=== PATIENT | male | born 1930 | race Caucasian/White ===

== ENCOUNTER 2017-08-20 10:32 | Inpatient (IN) | payer OTHER, BC ==
[2017-08-20] VITALS (10 sets, daily range): BP systolic 87–113; BP diastolic 51–67; PULSE 78–81; TEMP 36.5; O2SAT 93–99; Ht 188 cm; Wt 112.2 kg
[~2017-08-20] VITALS: Ht 188 cm; Wt 112.2 kg
--- NOTE | 2017-08-20 11:02 | EMERGENCY ROOM VISIT NOTE ---
History Report prepared by Jonh: Shmuel Call Under the Supervision of: Dr. Иван Garcia M.D. First contact with patient: 10:46 Chief Complaint: RESPIRATORY DISTRESS Stated Complaint: RESPIRATORY History of Present Illness The patient is an 87 year old male with a history of COPD who presents to the Emergency Room via EMS with complaints of worsening respiratory distress that started several days ago. Per the nursing staff, the patient wears 2 liters of oxygen normally, but has had to increase it over the past few days. He was 88% on room air on arrival here, and the nurses had to get him on 4 liters of oxygen to increase his oxygen saturation. The patient is noted to febrile here at 38.9, and is tachycardic. His last Tylenol was 4 hours ago. The patient states that he has been out with friends at [employer] all week, and they have been staying in a cabin. He did bring his oxygen there, but his oxygen shut off for about 30 minutes around 5 hours ago. The patient notes that his breathing difficulties started before his oxygen ran out, and adds that he has been a bit weaker than usual the past few days. Per the patient's friend, the patient was sweating and shaking this morning, and would not eat breakfast. The patient notes that he had the chills this morning. Per the patient's friend, the patient ate well until this morning. The patient states that he has no history of smoking. He notes that hie legs have been red for the past couple years. The patient has a pacemaker for a history of atrial fibrillation. He is due for a new battery next month. Source of History: patient, friend Onset: Several days ago Position: other (global) Symptom Intensity: 88% on room air here Quality: other (respiratory distress) Timing: worsening Associated Symptoms: + fevers, + chills, + diaphoresis, + SOB, + weakness Note: Associated symptoms: Shaking this morning. Lack of appetite this morning. Review of Systems See HPI for pertinent positives and negatives. A total of ten systems were reviewed and were otherwise negative. Past Medical & Surgical Medical Problems: (1) Afib (2) COPD (chronic obstructive pulmonary disease) (3) Fever (4) Pacemaker (5) Problems involving respiratory care Family History Family history omitted secondary to patient's advanced age. Social History Smoking Status: Never Smoker Drug Use: none Housing Status: lives with family Occupation Status: retired Current/Historical Medications Scheduled Digoxin (Digoxin), 0.125 MG PO DAILY Dutasteride-Tamsulosin HCl (Dutasteride/Tamsulosin Hc 0.5-0.4 mg), 1 CAP PO DAILY Escitalopram (Lexapro), 10 MG PO DAILY Furosemide (Lasix), 80 MG PO BID Omeprazole (Prilosec), Unknown Dose PO DAILY Rivaroxaban (Xarelto), 20 MG PO DAILY Scheduled PRN Furosemide (Lasix), 40 MG PO UD PRN for FLUID RETENTION Allergies Coded Allergies: No Known Allergies (Unverified , 08/20/17) Physical Exam Vital Signs Date Time Temp Pulse Resp B/P (MAP) Pulse Ox O2 Delivery O2 Flow Rate FiO2 08/20/17 14:00 85 29 115/74 95 Nasal Cannula 4.0 08/20/17 13:37 94 Nasal Cannula 3.0 08/20/17 13:30 95 26 107/73 95 Nasal Cannula 4.0 08/20/17 13:12 83 21 110/58 94 Nasal Cannula 3.0 08/20/17 13:11 84 08/20/17 12:19 94 24 115/60 95 Nasal Cannula 4.0 08/20/17 11:46 93 23 106/61 Nasal Cannula 4.0 08/20/17 11:00 94 Nasal Cannula 4.0 08/20/17 11:00 94 Nasal Cannula 4.0 08/20/17 10:48 94 Nasal Cannula 4.0 08/20/17 10:47 38.9 99 24 114/56 85 Room Air 08/20/17 10:47 Room Air 08/20/17 10:44 113 Physical Exam GENERAL: Awake, alert, dyspneic, fatigued, ill-appearing, in no distress HENT: Normocephalic, atraumatic. Dry cracked mucous membranes. EYES: Normal conjunctiva. Sclera non-icteric. NECK: Supple. No nuchal rigidity. FROM. No JVD. RESPIRATORY: Diminished breath sounds throughout. CARDIAC: Regular rate, normal rhythm. Extremities warm and well perfused. Pulses equal. ABDOMEN: Soft, non-distended. No tenderness to palpation. No rebound or guarding. No masses. RECTAL: Deferred. MUSCULOSKELETAL: Chest examination reveals no tenderness. The back is symmetrical on inspection without obvious abnormality. There is no CVA tenderness to palpation. No joint edema. LOWER EXTREMITIES: 2+ lower extremity edema on the right. 3+ lower extremity edema on the left with erythema, warmth and tenderness. Distal PMS intact. No discoloration. NEURO: Normal sensorium. No sensory or motor deficits noted. SKIN: No rash or jaundice noted. Medical Decision & Procedures ER Provider Diagnostic Interpretation: Radiology results as stated below per my review and radiologist interpretation: CHEST ONE VIEW PORTABLE CLINICAL HISTORY: Atypical chest pain COMPARISON STUDY: No previous studies for comparison. FINDINGS: The heart is enlarged. There is a left subclavian dual-chamber central venous pacemaker. There is right hilar enlargement, likely secondary to a prominent pulmonary artery. This may indicate pulmonary arterial hypertension. There is mild elevation of the interstitium. An element of mild pulmonary vascular congestion must be considered. There is no lobar consolidation[ IMPRESSION: 1. Cardiomegaly and possible pulmonary arterial hypertension 2. Elevation of the interstitium. An element of mild pulmonary vascular congestion must be considered Electronically signed by: Unruly Duron M.D. 08/20/2017 11:24 AM Dictated Date/Time: 08/20/2017 11:23 AM ULTRASOUND L VENOUS DOPP LOWER EXT UNILAT CLINICAL HISTORY: Left leg redness and swelling COMPARISON STUDY: No previous studies for comparison. FINDINGS: Real-time and color flow Doppler imaging were performed. Flow was seen within the femoral, popliteal and calf veins with no intraluminal thrombus demonstrated. The saphenous vein is patent. Fatty replaced left inguinal lymph nodes are visualized. IMPRESSION: No evidence of left lower extremity DVT. Electronically signed by: Unruly Duron M.D 08/20/2017 12:57 PM Dictated Date/Time: 08/20/2017 12:57 PM Laboratory Results 08/20/17 11:20 Red Blood Count 4.07, Mean Corpuscular Volume 91.2, Mean Corpuscular Hemoglobin 29.7, Mean Corpuscular Hemoglobin Concent 32.6, Mean Platelet Volume 9.2, Neutrophils (%) (Auto) 87.1, Lymphocytes (%) (Auto) 7.8, Monocytes (%) (Auto) 4.5, Eosinophils (%) (Auto) 0.1, Basophils (%) (Auto) 0.1, Neutrophils # (Auto) 12.00, Lymphocytes # (Auto) 1.07, Monocytes # (Auto) 0.62, Eosinophils # (Auto) 0.01, Basophils # (Auto) 0.01 08/20/17 11:20 Test 08/20/17 11:20 08/20/17 11:30 White Blood Count 13.76 K/uL (4.8-10.8) Red Blood Count 4.07 M/uL (4.7-6.1) Hemoglobin 12.1 g/dL (14.0-18.0) Hematocrit 37.1 % (42-52) Mean Corpuscular Volume 91.2 fL (80-100) Mean Corpuscular Hemoglobin 29.7 pg (25-34) Mean Corpuscular Hemoglobin Concent 32.6 g/dl (32-36) Platelet Count 242 K/uL (130-400) Mean Platelet Volume 9.2 fL (7.4-10.4) Neutrophils (%) (Auto) 87.1 % Lymphocytes (%) (Auto) 7.8 % Monocytes (%) (Auto) 4.5 % Eosinophils (%) (Auto) 0.1 % Basophils (%) (Auto) 0.1 % Neutrophils # (Auto) 12.00 K/uL (1.4-6.5) Lymphocytes # (Auto) 1.07 K/uL (1.2-3.4) Monocytes # (Auto) 0.62 K/uL (0.11-0.59) Eosinophils # (Auto) 0.01 K/uL (0-0.5) Basophils # (Auto) 0.01 K/uL (0-0.2) RDW Standard Deviation 44.7 fL (36.4-46.3) RDW Coefficient of Variation 13.6 % (11.5-14.5) Immature Granulocyte % (Auto) 0.4 % Immature Granulocyte # (Auto) 0.05 K/uL (0.00-0.02) Prothrombin Time 12.7 SECONDS (9.0-12.0) Prothromb Time International Ratio 1.2 (0.9-1.1) Venous Blood pH 7.44 (7.36-7.41) Venous Blood Partial Pressure CO2 48 mmHg (38.0-50.0) Venous Blood Partial Pressure O2 35 mmHg Venous Blood HCO3 32 mmol/L Venous Blood Oxygen Saturation 65.9 % Venous Blood Base Excess 6.6 mEq/L Anion Gap 8.0 mmol/L (3-11) Est Creatinine Clear Calc Drug Dose 72.8 ml/min Estimated GFR () 78.6 Estimated GFR (Non- 67.8 BUN/Creatinine Ratio 12.9 (10-20) Lactic Acid Level 1.5 mmol/L (0.4-2.0) Calcium Level 9.1 mg/dl (8.5-10.1) Magnesium Level 1.5 mg/dl (1.8-2.4) Total Bilirubin 1.0 mg/dl (0.2-1) Direct Bilirubin 0.3 mg/dl (0-0.2) Aspartate Amino Transf (AST/SGOT) 13 U/L (15-37) Alanine Aminotransferase (ALT/SGPT) 13 U/L (12-78) Alkaline Phosphatase 64 U/L (45-117) Troponin I 0.031 ng/ml (0-0.045) Pro-B-Type Natriuretic Peptide 2011 pg/ml (0-1800) Total Protein 7.1 gm/dl (6.4-8.2) Albumin 3.1 gm/dl (3.4-5.0) Lipase 60 U/L (73-393) Urine Color DK YELLOW Urine Appearance CLEAR (CLEAR) Urine pH 6.0 (4.5-7.5) Urine Specific [place] 1.020 (1.000-1.030) Urine Protein NEG (NEG) Urine Glucose (UA) NEG (NEG) Urine Ketones NEG (NEG) Urine Occult Blood NEG (NEG) Urine Nitrite NEG (NEG) Urine Bilirubin NEG (NEG) Urine Urobilinogen NEG (NEG) Urine Leukocyte Esterase MODERATE (NEG) Urine WBC (Auto) 5-10 /hpf (0-5) Urine RBC (Auto) 0-4 /hpf (0-4) Urine Hyaline Casts (Auto) 1-5 /lpf (0-5) Urine Epithelial Cells (Auto) >30 /lpf (0-5) Urine Bacteria (Auto) NEG (NEG) Laboratory results reviewed by me Medications Administered Medications (Trade) Dose Ordered Sig/Hernandez Route Start Time Stop Time Status Last Admin Dose Admin Vancomycin HCl 2000 mg/Sodium Chloride 540 ml @ 200 mls/hr ONE STAT IV 08/20/17 11:03 08/20/17 13:44 DC 08/20/17 11:37 200 MLS/HR Piperacillin Sod/ Tazobactam Sod (Zosyn Iv) 4.5 gm NOW STAT IV 08/20/17 11:03 08/20/17 11:05 DC 08/20/17 11:21 4.5 GM Methylprednisolone Sodium Succinate (Solu-Medrol IV) 125 mg NOW STAT IV 08/20/17 11:03 08/20/17 11:05 DC 08/20/17 11:21 125 MG Albuterol/ Ipratropium (Duoneb) 3 ml NOW STAT INH 08/20/17 11:03 08/20/17 11:05 DC 08/20/17 11:21 3 ML Furosemide (Lasix Inj) 40 mg NOW STAT IV 08/20/17 12:36 08/20/17 12:37 DC 08/20/17 13:07 40 MG ECG Per My Interpretation Indication: SOB/dyspnea Rate (beats per minute): 100 Rhythm: other (v-paced rhythm) Findings: PVC (single), no acute ischemic change ED Course 1048: The patient was evaluated in room B9. A complete history and physical exam was performed. 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 As the patient mentioned he is due to get it replaced. Given how active it is it should be replaced as soon as possible. If the trigger for replacement was July 27, generally there is a 3-month window to have it done if it is not being actively paced. The battery is functioning. 1303: Upon reexamination, the patient was resting. I discussed the test results and treatment plan with him. The patient will be evaluated for further management. 1314: I discussed the patient with Dr. Linwood Cole rn cardiovascular - he will evaluate the patient for further treatment. Medical Decision I reviewed the patient's past medical history, medications, and the nursing notes as described above. Differential diagnosis: Etiologies such as infections, reactive airway disease, pneumonia, pneumothorax , COPD, CHF, cardiac ischemia, pulmonary embolism, musculoskeletal, gastrointestinal, DVT, musculoskeletal, infection, joint effusion, trauma, lymphedema, idiopathic, as well as others were entertained. The patient is an 87-year-old gentleman with a past medical history of COPD on 2 L home O2 who presents emergency department with worsening shortness of breath , generalized weakness over the past couple of days worsened this morning when his generator turned off and was up without oxygen for 30 minutes per hpi. On arrival the patient is dyspneic appearing uncomfortable but no acute distress tachycardic in the 100s with blood pressure stable, O2 saturation low 90s on 4L NC. On exam the patient has diminished breath sounds throughout. Left lower extremity is 3+ edema with erythema and warmth with distal PMS intact. Duplex negative. WBC 13.7, troponin 0 0.31, BNP 2000, lactate within normal limits. Chest x-ray with cardiomegaly and venous congestion as well as comment on prominent pulmonary artery suspicious for pulmonary hypertension. Given patient 's 3/4 Sirs criteria on arrival the patient was treated with broad-spectrum antibiotics empirically with concern for possible cellulitis source. Given findings of overload with elevated BNP and vascular congestion was given IV dose of Lasix as well. Case was discussed with Douglas Graff hospitalist will evaluate the patient for admission. Medication Reconcilliation Current Medication List: was personally reviewed by me Blood Pressure Screening Patient's blood pressure: Normal blood pressure Consults Time Called: 1150 Consulting Physician: 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 As the patient mentioned he is due to get it replaced. Given how active it is it should be replaced as soon as possible. If the trigger for replacement was July 27, generally there is a 3-month window to have it done if it is not being actively paced. The battery is functioning. Additional Consults: Time Called: 1310 Consulted Physician: Dr. Linwood Cole rn cardiovascular Returned Call: [phone] Additional Comments: I discussed the patient with Dr. Linwood Cole rn cardiovascular - he will evaluate the patient for further treatment. Impression Primary Impression: Sepsis Additional Impressions: Cellulitis CHF (congestive heart failure) Critical Care I have personally spent greater than 35 minutes of critical care time in the direct management of this patient. This includes bedside care, interpretation of diagnostic studies, and testing, discussion with consultants, patient, and family members, and other required patient management activities. This 35 minutes is in excess of all separately billable procedures. Scribe Attestation The scribe's documentation has been prepared under my direction and personally reviewed by me in its entirety. I confirm that the note above accurately reflects all work, treatment, procedures, and medical decision making performed by me. Departure Information Dispostion Being Evaluated By Hospitalist Patient Instructions Asthma - [facility], COPD - [facility], Croup - [facility], [facility] Problem Qualifiers
[2017-08-20] MEDS ORDERED: VANCOMYCIN IV 2,000 MG in SODIUM CHLORIDE 0.9% 500ML 500 ML IV STA (11:03)
[2017-08-20] MEDS ORDERED: PIPERACILLIN/TAZOBACTAM 4.5 GM/100ML D5W IV STA (11:03)
[2017-08-20] MEDS ORDERED: ALBUT/IPRATROP 3MG/0.5MG NEB 3 ML VIAL INH STA (11:03)
[2017-08-20] MEDS ORDERED: METHYLPREDNISOLONE 125 MG VIAL IV STA (11:03)
[2017-08-20] MEDS ORDERED: VANCOMYCIN CONSULT ACTIVE PRN ×2 (11:15→17:30)
--- NOTE | 2017-08-20 11:26 | DIAGNOSTIC IMAGING REPORT ---
CHEST ONE VIEW PORTABLE CLINICAL HISTORY: Atypical chest pain COMPARISON STUDY: No previous studies for comparison. FINDINGS: The heart is enlarged. There is a left subclavian dual-chamber central venous pacemaker. There is right hilar enlargement, likely secondary to a prominent pulmonary artery. This may indicate pulmonary arterial hypertension. There is mild elevation of the interstitium. An element of mild pulmonary vascular congestion must be considered. There is no lobar consolidation[ IMPRESSION: 1. Cardiomegaly and possible pulmonary arterial hypertension 2. Elevation of the interstitium. An element of mild pulmonary vascular congestion must be considered Electronically signed by: Unruly Duron M.D. 08/20/2017 11:24 AM Dictated Date/Time: 08/20/2017 11:23 AM
[2017-08-20] MEDS ORDERED: ESCI10TA17 PO (11:31)
[2017-08-20] MEDS ORDERED: DUTA1CAP25 PO (11:31)
[2017-08-20] MEDS ORDERED: RIVA1TAB4 PO (11:31)
[2017-08-20] MEDS ORDERED: PRLSR20 PO (11:31)
[2017-08-20] MEDS ORDERED: FURO80TA63 PO (11:31)
[2017-08-20] MEDS ORDERED: LNX125 PO (11:31)
[2017-08-20] MEDS ORDERED: FRS/40 PO (11:31)
[2017-08-20 11:32] LABS: BASO % 0.1 %; BASO ABS # 0.01 K/uL (0-0.2); EOS % 0.1 %; EOS ABS # 0.01 K/uL (0-0.5); HEMATOCRIT 37.1 % (42-52); HEMOGLOBIN 12.1 g/dL (14.0-18.0); IG# 0.05 K/uL (0.00-0.02); LYMPH % 7.8 %; LYMPH ABS # 1.07 K/uL (1.2-3.4); MEAN CELL VOLUME 91.2 fL (80-100); MEAN CORPUSCULAR HEMOGLOBIN 29.7 pg (25-34); MEAN CORPUSCULAR HGB CONC 32.6 g/dl (32-36); MEAN PLATELET VOLUME 9.2 fL (7.4-10.4); MONO % 4.5 %; MONO ABS # 0.62 K/uL (0.11-0.59); NEUT % 87.1 %; PLATELET COUNT 242 K/uL (130-400); RED CELL DISTRIBUTION WIDTH CV 13.6 % (11.5-14.5); RED CELL DISTRIBUTION WIDTH SD 44.7 fL (36.4-46.3); WHITE BLOOD COUNT 13.76 K/uL (4.8-10.8)
[2017-08-20 11:40] LABS: INR 1.2 (0.9-1.1)
[2017-08-20 11:55] LABS: ALBUMIN 3.1 gm/dl (3.4-5.0); CALCIUM 9.1 mg/dl (8.5-10.1); POTASSIUM 3.6 mmol/L (3.5-5.1); TOTAL PROTEIN 7.1 gm/dl (6.4-8.2)
[2017-08-20] MEDS ORDERED: FUROSEMIDE 40 MG/4 ML VIAL IV STA (12:36)
--- NOTE | 2017-08-20 12:58 | DIAGNOSTIC IMAGING REPORT ---
ULTRASOUND L VENOUS DOPP LOWER EXT UNILAT CLINICAL HISTORY: Left leg redness and swelling COMPARISON STUDY: No previous studies for comparison. FINDINGS: Real-time and color flow Doppler imaging were performed. Flow was seen within the femoral, popliteal and calf veins with no intraluminal thrombus demonstrated. The saphenous vein is patent. Fatty replaced left inguinal lymph nodes are visualized. IMPRESSION: No evidence of left lower extremity DVT. Electronically signed by: Unruly Duron M.D. 08/20/2017 12:57 PM Dictated Date/Time: 08/20/2017 12:57 PM
[2017-08-20] MEDS ORDERED: PIPERACILL/TAZOBAC CONSULT ACTIVE PRN (14:30)
--- NOTE | 2017-08-20 14:54 | History and Physical ---
History & Physical Date & Time of Service: August 20, 2017 at 14:35 Chief Complaint: Respiratory Primary Care Physician: No Doctor, Assigned History of Present Illness Source: patient This is an 87 year old M on chronic home O2 originally from [place] who was in [facility] while on camping trip patient became having more shortness of breath, reportedly had shortness of breath 2 days before going on his camping trip, and during the trip there was problems with the patient's oxygen supply was no longer working. Patient was found to have fever of 102 F and more hypoxic when brought to the ED.Found to have evidence of cellulitis infection of lower extremities. Patient had pacemaker interrogated. ED requested hospitalist admission for fever. Hospitalist examined the patient. Patient denies recent fevers. Denies worsening leg swelling. Patient is a poor historian. Patient's daughter was contacted and attempts made to contact his pharmacy and doctors. Cardiology asked to see the patient in regards to the pacemaker interrogation reports. ICU doctor asked evaluate due to increased oxygen requirements and waning mental status and in a patient with multiple cardiac, respiratory co-morbidities with fever. Past Medical/Surgical History Medical Problems: (1) Afib (2) COPD (chronic obstructive pulmonary disease) (3) Fever (4) Pacemaker (5) Problems involving respiratory care Social History Smoking Status: Former Smoker Drug Use: none Occupational Status: retired Allergies Coded Allergies: No Known Allergies (Unverified , 08/20/17) Home Medications Scheduled Digoxin (Digoxin), 0.125 MG PO DAILY Dutasteride-Tamsulosin HCl (Dutasteride/Tamsulosin Hc 0.5-0.4 mg), 1 CAP PO DAILY Escitalopram (Lexapro), 10 MG PO DAILY Furosemide (Lasix), 80 MG PO BID Omeprazole (Prilosec), Unknown Dose PO DAILY Rivaroxaban (Xarelto), 20 MG PO DAILY Scheduled PRN Furosemide (Lasix), 40 MG PO UD PRN for FLUID RETENTION Review of Systems Constitutional: No fever Eyes: No worsening of vision ENT: No hearing loss, No sore throat, No trouble swallowing Respiratory: + shortness of breath, No cough, No sputum, No wheezing Cardiovascular: + edema, No chest pain, No palpitations Abdomen: No pain, No nausea, No vomiting Genitourinary - Male: No hematuria, No dysuria Neurologic: No numbness/tingling Psychiatric: No substance abuse Hematologic / Lymphatic: No abnormal bleeding/bruising Physical Exam Vital Signs Date Time Temp Pulse Resp B/P (MAP) Pulse Ox O2 Delivery O2 Flow Rate FiO2 08/20/17 14:00 85 29 115/74 95 Nasal Cannula 4.0 08/20/17 13:37 94 Nasal Cannula 3.0 08/20/17 13:30 95 26 107/73 95 Nasal Cannula 4.0 08/20/17 13:12 83 21 110/58 94 Nasal Cannula 3.0 08/20/17 13:11 84 08/20/17 12:19 94 24 115/60 95 Nasal Cannula 4.0 08/20/17 11:46 93 23 106/61 Nasal Cannula 4.0 08/20/17 11:00 94 Nasal Cannula 4.0 08/20/17 11:00 94 Nasal Cannula 4.0 08/20/17 10:48 94 Nasal Cannula 4.0 08/20/17 10:47 38.9 99 24 114/56 85 Room Air 08/20/17 10:47 Room Air 08/20/17 10:44 113 General Appearance: + pertinent finding (increasingly drowsy) Head: normocephalic, atraumatic Eyes: normal inspection, EOMI ENT: normal ENT inspection, hearing grossly normal, pharynx normal Neck: supple, no JVD, trachea midline Respiratory/Chest: chest non-tender, + crackles Cardiovascular: no JVD, + abnormal rhythm, + pertinent finding (pacemaker) Abdomen/GI: normal bowel sounds, non tender, soft Back: normal inspection, no CVA tenderness, no muscle spasm Extremities/Musculoskelatal: + swelling (bilateral lower extremity edema with dark skin discoloration) Neurologic/Psych: + pertinent finding (increasingly drowsy) Skin: + pertinent finding (lower extremity with weepy swollen legs) Diagnostics Laboratory Results Results Past 24 Hours Test 08/20/17 11:20 08/20/17 11:30 08/20/17 14:28 Range/Units White Blood Count 13.76 4.8-10.8 K/uL Red Blood Count 4.07 4.7-6.1 M/uL Hemoglobin 12.1 14.0-18.0 g/dL Hematocrit 37.1 42-52 % Mean Corpuscular Volume 91.2 80-100 fL Mean Corpuscular Hemoglobin 29.7 25-34 pg Mean Corpuscular Hemoglobin Concent 32.6 32-36 g/dl Platelet Count 242 130-400 K/uL Mean Platelet Volume 9.2 7.4-10.4 fL Neutrophils (%) (Auto) 87.1 % Lymphocytes (%) (Auto) 7.8 % Monocytes (%) (Auto) 4.5 % Eosinophils (%) (Auto) 0.1 % Basophils (%) (Auto) 0.1 % Neutrophils # (Auto) 12.00 1.4-6.5 K/uL Lymphocytes # (Auto) 1.07 1.2-3.4 K/uL Monocytes # (Auto) 0.62 0.11-0.59 K/uL Eosinophils # (Auto) 0.01 0-0.5 K/uL Basophils # (Auto) 0.01 0-0.2 K/uL RDW Standard Deviation 44.7 36.4-46.3 fL RDW Coefficient of Variation 13.6 11.5-14.5 % Immature Granulocyte % (Auto) 0.4 % Immature Granulocyte # (Auto) 0.05 0.00-0.02 K/uL Prothrombin Time 12.7 9.0-12.0 SECONDS Prothromb Time International Ratio 1.2 0.9-1.1 Venous Blood pH 7.44 7.36-7.41 Venous Blood Partial Pressure CO2 48 38.0-50.0 mmHg Venous Blood Partial Pressure O2 35 mmHg Venous Blood HCO3 32 mmol/L Venous Blood Oxygen Saturation 65.9 % Venous Blood Base Excess 6.6 mEq/L Sodium Level 137 136-145 mmol/L Potassium Level 3.6 3.5-5.1 mmol/L Chloride Level 100 98-107 mmol/L Carbon Dioxide Level 29 21-32 mmol/L Anion Gap 8.0 3-11 mmol/L Blood Urea Nitrogen 13 7-18 mg/dl Creatinine 1.00 0.60-1.40 mg/dl Est Creatinine Clear Calc Drug Dose 72.8 ml/min Estimated GFR () 78.6 Estimated GFR (Non- 67.8 BUN/Creatinine Ratio 12.9 10-20 Random Glucose 119 70-99 mg/dl Lactic Acid Level 1.5 0.4-2.0 mmol/L Calcium Level 9.1 8.5-10.1 mg/dl Magnesium Level 1.5 1.8-2.4 mg/dl Total Bilirubin 1.0 0.2-1 mg/dl Direct Bilirubin 0.3 0-0.2 mg/dl Aspartate Amino Transf (AST/SGOT) 13 15-37 U/L Alanine Aminotransferase (ALT/SGPT) 13 12-78 U/L Alkaline Phosphatase 64 45-117 U/L Troponin I 0.031 0-0.045 ng/ml Pro-B-Type Natriuretic Peptide 2010 0-1800 pg/ml Total Protein 7.1 6.4-8.2 gm/dl Albumin 3.1 3.4-5.0 gm/dl Lipase 60 73-393 U/L Urine Color DK YELLOW Urine Appearance CLEAR CLEAR Urine pH 6.0 4.5-7.5 Urine Specific [place] 1.020 1.000-1.030 Urine Protein NEG NEG Urine Glucose (UA) NEG NEG Urine Ketones NEG NEG Urine Occult Blood NEG NEG Urine Nitrite NEG NEG Urine Bilirubin NEG NEG Urine Urobilinogen NEG NEG Urine Leukocyte Esterase MODERATE NEG Urine WBC (Auto) 5-10 0-5 /hpf Urine RBC (Auto) 0-4 0-4 /hpf Urine Hyaline Casts (Auto) 1-5 0-5 /lpf Urine Epithelial Cells (Auto) >30 0-5 /lpf Urine Bacteria (Auto) NEG NEG Microbiology Results 08/20/17 Blood Culture, Received Pending 08/20/17 Blood Culture, Received Pending Diagnostic Radiology 1. Cardiomegaly and possible pulmonary arterial hypertension 2. Elevation of the interstitium. An element of mild pulmonary vascular congestion must be considered Impression Assessment and Plan Fever T max of 38.9 C (102 F in the ED) Cellulitis of Lower extremities -Patient reports that lower extremity skin changes have been chronic -Patient's daughter Fannie Arnold [phone] by phone does report that symptoms are recently more "weepy" -patient had blood cultures ordered in the ED and Vancomycin and Zosyn ordered in the ED -patient to continue broad spectrum antibiotics until cultures return -No evidence of left lower extremity DVT. Respiratory -Patient denies history of COPD. Reports Smoking which he quit in 1950s. Denies inhalers -Reports chronic oxygen only at night, generally denies oxygen use during the day but was having more shortness of breath 2 days before going on his camping trip -In the ED needing increased O2. VBG was done in the ED. Order ABG -Will need diuresis to alleviate worsening of dyspnea- Lasix -Increased oxygen requirements, start BIPAP -Treat infection -Dyspnea may also relate to cardiac health Cardiac -Patient has pacemaker interrogated by [employer] outside sales representative in the and as per documentation results sent to [facility] on [address] [place] [address] -As per the ED documentation, between the ED physician and the patient's [employer] outside sales representative " pacemaker shows underlying atrial fibrillation and is pacing a lot. As the patient mentioned he is due to get it replaced. Given how active it is it should be replaced as soon as possible. If the trigger for replacement was July 27, generally there is a 3-month window to have it done if it is not being actively paced. The battery is functioning." -Have consulted inpatient cardiology for further assessment -Patient on Digoxin, check digoxin level -Patient likely have history of cardiomyopathy and CHF, at home he reports of being on Lasix 80 mg BID for a total of 160 mg Lasix daily and sometimes he is instructed to add on additional Lasix 40 mg to that total for a total of 200 mg Lasix in one day. -Will appreciate further cardiology recommendations on heart rhythm and diuresis management -Cardiology service started beta blockers -Patient is anticoagulated on home medication of Xarelto, continue Xarelto Patient's pharmacy is [facility] [address], [place] [address] Hospitalist have attempted to call to verify medications. The pharmacy is closed pacemaker interrogated by [employer] outside sales representative in the and as per documentation results sent to [facility] on [address] [facility], [place] [address] Dr. Gabriel Archibald is the cardiology doctor listed as part of the pacemaker interrogation follow ups Patient reports his cardiology doctors are with [facility] in [place] Patient reports his primary medical doctor is a Dr. Mora which is near his pharmacy There is a [facility] on [address], [place] [address] [phone] Have called their office number to ask whether Mr. Hardy is one of their patient in case medical records need to be obtained. The salon receptionist is notifying a physician Patient's Daughter Fannie Arnold [phone] called by phone. Daughter report's patient's code status of living will is DNR. Have discussed with patient at bedside in the ER. patient able to make medical decisions. He allows for FULL CODE Status chest compressions, defibrillate/shock the heart, and intubation with mechanical ventilation if needed Disposition: Patient initially had admission disposition for telemetry but while being monitored closely by medical hospitalist doctor, patient has increased oxygen requirements. Also more drowsy. BIPAP ordered.Patient would be better monitored in ICU. Spoke with ICU attending about ICU acceptance. Advanced Directives Existing Living Will: No Existing Power of Label Stitcher: No Resuscitation Status VTE Prophylaxis Will order VTE Prophylaxis: Yes
[2017-08-20] MEDS ORDERED: METOPROLOL TARTRATE 25 MG TAB PO ONE (16:10)
--- NOTE | 2017-08-20 16:15 | Cardiology Consultation ---
Cardiology Consultation Date of Consultation: August 20, 2017 History of Present Illness Patient is a 87 year old male seen in cardiology consultation per the request of Dr. Palumbo for the evaluation of shortness of breath and abnormal biventricular pacemaker AICD interrogation. The patient is from [place]. He was traveling in the area this weekend for a trip to a local fishing cabin. This is a trip that he takes routinely with his friends. The friend that accompanied him to the emergency room states that they have been on a prior fishing trip last month and that the patient had been in much better health at that point. This weekend the patient stayed in the cabin. His friend notes that the patient is lethargic and short of breath and therefore he took him to the emergency room. Patient is a poor historian. He lives in [place] and he receives his cardiology care at [facility]. Based on the remote device report for his [employer] Biventricular PM AICD, the device was implanted by Dr Gabriel Saavedra of EP at [facility] on 05/11/2012. I spoke to the patient's daughter, Nikole on the telephone who states that her father had recently had progressive lower extremity edema several weeks ago. It progressed to the point that he was weeping clear fluid. She believes that his furosemide dose was increased from 80 mg twice 120 mg, but at this point, we are uncertain what his outpatient medication regimen is. Apparently the lower extremity swelling has had interval improvement per her impression as she has been helping him care for this. She does not recall that he has been on any antibiotics recently. She believes that he was most recently seen by his primary information specialist about 2 weeks ago and was told that he would need a repeat device procedure that is tentatively scheduled for September. Based on the remote check, his device reached the elective replacement interval on 07/27/17. He is in atrial fibrillation 100 % of the time since the most recent check. He is biventricular paced 89% of the time. Per review of the additional device data, appears his total atrial fibrillation burden since 2012 has been 75%, however the burden has been 100% since July 2017. EKG reveals ventricular paced rhythm at 100 bpm with morphology consistent with the device check findings of underlying atrial fibrillation. As noted above the patient is a poor historian. He is unable to tell me if he has had heart attacks or heart stents. He has no sternotomy incision. He tells me that he does not believe that he has any heart stents. He is not able to describe why he received the cardiac resynchronization/defibrillator device. He is lethargic and falls asleep in mid conversation at present. He has left greater than right bilateral lower extremity edema, the left leg is worse, and is frankly erythematous and red from the knee down. Right lower leg is less swollen and has venous stasis changes that appear chronic. Chest x-ray performed in emergency room was a portable study and is consistent with interstitial edema, but the study is of decreased quality and the device leads cannot be traced to their termination as that portion of the images cut off at the bottom. History Past Medical History: 1. Apparent history of cardiomyopathy, details unknown at present. -Per device report device placed for indications of dilated cardiomyopathy, CHF , AF 2.[employer] Un[employer] Quadra [id number] AMBULANCE DRIVER-D (biventricular pacemaker AICD), placed in 2012. 3. Apparent chronic atrial fibrillation Past Surgical History: PM AICD placed 2012, [place] Social History: Lives independently, Daughter, Nikole helps him with his medical appointments Family History: non obtainable due to pt's lethargy Review Of Systems 10 point ROS not obtainable. Allergies Coded Allergies: No Known Allergies (Unverified , 08/20/17) Medications Reported Home Medications Medications Dose Route/Sig Max Daily Dose Days Date Category Lexapro (Escitalopram Oxalate) 10 Mg Tab 10 Mg PO DAILY 08/20/17 Reported Digoxin 0.125 Mg Tab 0.125 Mg PO DAILY 08/20/17 Reported Prilosec (Omeprazole) 20 Mg Capcr Unknown Dose PO DAILY 08/20/17 Reported Dutasteride/Tamsulosin Hc 0.5-0.4 mg (Dutasteride-Tamsulosin HCl) 1 Cap Cap 1 Cap PO DAILY 08/20/17 Reported Xarelto (Rivaroxaban) 20 Mg Tab 20 Mg PO DAILY 08/20/17 Reported Lasix (Furosemide) 40 Mg Tab 40 Mg PO UD PRN 08/20/17 Reported Lasix (Furosemide) 80 Mg Tab 80 Mg PO BID 08/20/17 Reported Physical Exam Vital Signs (Last 8hrs): Last 8 Hrs Date Time Temp Pulse Resp B/P (MAP) Pulse Ox O2 Delivery O2 Flow Rate FiO2 08/20/17 15:53 80 21 103/58 94 4.0 08/20/17 14:35 80 27 95 Nasal Cannula 4.0 08/20/17 14:31 115/68 08/20/17 14:00 85 29 115/74 95 Nasal Cannula 4.0 08/20/17 13:37 94 Nasal Cannula 3.0 08/20/17 13:30 95 26 107/73 95 Nasal Cannula 4.0 08/20/17 13:12 83 21 110/58 94 Nasal Cannula 3.0 08/20/17 13:11 84 08/20/17 12:19 94 24 115/60 95 Nasal Cannula 4.0 08/20/17 11:46 93 23 106/61 Nasal Cannula 4.0 08/20/17 11:00 94 Nasal Cannula 4.0 08/20/17 11:00 94 Nasal Cannula 4.0 08/20/17 10:48 94 Nasal Cannula 4.0 08/20/17 10:47 38.9 99 24 114/56 85 Room Air 08/20/17 10:47 Room Air 08/20/17 10:44 113 General Appearance: acutely ill in appearance, lethargic Head: Normocephalic Atraumatic. Eyes: PERRLA, EOMI, conjunctiva and sclera clear Neck: Supple. No carotid bruits noted. No JVD. No HJD. Respiratory: decreased BS at the bases, poor effort Cardiovascular: distant heart sounds , regular Abdomen: Normal bowel sounds, soft nontender. no abdominal bruits. Extremities: R > L 2-3 + LE edema, left leg is erythematous and warm Neuro: Lethargic however without focal deficit, able to move all 4 extremities on command Data Last Resulted 08/20/17 11:20 Red Blood Count 4.07, Mean Corpuscular Volume 91.2, Mean Corpuscular Hemoglobin 29.7, Mean Corpuscular Hemoglobin Concent 32.6, Mean Platelet Volume 9.2, Neutrophils (%) (Auto) 87.1, Lymphocytes (%) (Auto) 7.8, Monocytes (%) (Auto) 4.5, Eosinophils (%) (Auto) 0.1, Basophils (%) (Auto) 0.1, Neutrophils # (Auto) 12.00, Lymphocytes # (Auto) 1.07, Monocytes # (Auto) 0.62, Eosinophils # (Auto) 0.01, Basophils # (Auto) 0.01 Last Resulted 08/20/17 11:20 Past 24 Hours Test 08/20/17 11:20 Range/Units Prothromb Time International Ratio 1.2 H 0.9-1.1 Prothrombin Time 12.7 H 9.0-12.0 SECONDS Troponin I 0.031 0-0.045 ng/ml EKG as outlined above. Device interrogation states that the device reached elective replacement interval on 07/27/17. Persistent atrial fibrillation noted. Biventricular pacing frequency has decreased. No recent ventricular arrhythmias detected since 07/28/2017 Assessment & Plan Impression: 87-year-old male Apparent history of cardiomyopathy, perhaps nonischemic cardiomyopathy, for which patient underwent biventricular pacemaker AICD at [facility] in 2012. The patient was in [facility] for a fishing trip, and has suffered progressive lethargy and shortness of breath prompting a friend bring him to the hospital. 1. Acute heart failure decompensation, likely underlying chronic systolic heart failure based on history 2. Persistent atrial fibrillation, mildly elevated ventricular rates on presentation, now down to the 80 bpm range, ventricular paced on telemetry 3. Bilateral lower extremity edema, left greater than right, likely related to his underlying heart condition, with findings concerning for significant left lower extremity cellulitis Discussion/recommendations: I discussed the patient's case at length with Dr. partida as well as Dr. Mccauley of the critical care team. I recommend admission to the intensive care unit. Will Place Turner catheter to help facilitate diuretics and to keep track of his intake and output. The patient's current physical mental status prevents him from making frequent trips to the bathroom safely. Would have low threshold for placing BiPAP to feel this would help him from a respiratory standpoint. An ABG is pending. His outpatient cardiac medications include Xarelto, digoxin, and furosemide. His furosemide dose is not clear but it had recently been escalated due to edema. Agree with starting with furosemide 40 mg IV, continue this on a twice daily basis. Continue outpatient digoxin. Continue Xarelto sounds his renal function remains stable. Recommend broad-spectrum antibiotics for cellulitis. We need to pay attention and try to minimize IV fluid input. Plan on proceeding with echocardiogram. At some point the patient will need to have his device generator replaced, but he needs to be better compensated from a heart failure standpoint, and his infectious concerns need to be resolved first.
--- NOTE | 2017-08-20 16:19 | Critical Care Consultation ---
Critical Care Consultation Date of Consultation: August 20, 2017. Attending Physician: Reason for Consultation: Sepsis History of Present Illness I was asked to assist with the care of Mr. Hardy. He has not felt well for 3 days. Increased erythema and drainage from his left LE noted. High temp noted. Increased lethargy. He was at a fishing camp with some buddies who noted he wasn't feeling well and not fishing. One of them brought him to the hospital. He usually obtains care in the [facility]. Underlying medical issues include atrial fib and a cardiomyopathy. Nocturnal oxygen has been used for probably NANCY. Morbid obesity and substantial LE stasis noted. The LE extremity stasis changes are substantial and as above reports several days of worsening drainage. His oxygen requirements in the ER have been variable. Cardiology has given him additional Lasix already as well as beta juan. Because of the constellation of hypoxemia, cellulitis and early sepsis, cardiomyopathy and atrial fib he will be closely monitored in the ICU. Of note his battery for the pacemaker has . A new battery was recommended but apparently he desired the fishing trip first. Past Medical/Surgical History --Obesity --Afib --Cardiomyopathy --COPD --Nocturnal Hypoxemia--Probable NANCY Family History Patient reports no known family medical history. Social History Smoking Status: Former Smoker Drug Use: none Housing Status: lives with family Occupation Status: retired Allergies Coded Allergies: No Known Allergies (Unverified , 08/20/17) Home Medications Scheduled Digoxin (Digoxin), 0.125 MG PO DAILY Dutasteride-Tamsulosin HCl (Dutasteride/Tamsulosin Hc 0.5-0.4 mg), 1 CAP PO DAILY Escitalopram (Lexapro), 10 MG PO DAILY Furosemide (Lasix), 80 MG PO BID Omeprazole (Prilosec), Unknown Dose PO DAILY Rivaroxaban (Xarelto), 20 MG PO DAILY Scheduled PRN Furosemide (Lasix), 40 MG PO UD PRN for FLUID RETENTION Current Inpatient Medications Current Inpatient Medications Medications (Trade) Dose Ordered Sig/Hernandez Route Start Time Stop Time Status Last Admin Dose Admin Miscellaneous Information (Consult) 1 ea UD PRN N/A 08/20/17 11:15 09/19/17 11:14 Miscellaneous Information (Consult) 1 ea UD PRN N/A 08/20/17 14:30 09/19/17 14:29 Digoxin (Lanoxin Tab) 0.125 mg DAILY PO 08/21/17 09:00 09/20/17 08:59 UNV Escitalopram Oxalate (Lexapro Tab) 10 mg DAILY PO 08/21/17 09:00 09/20/17 08:59 UNV Rivaroxaban (Xarelto Tab) 20 mg DAILY PO 08/21/17 09:00 09/20/17 08:59 UNV Tamsulosin HCl (Flomax Cap) 0.4 mg QAM PO 08/21/17 09:00 09/20/17 08:59 UNV Pantoprazole Sodium (Protonix Tab) 40 mg QAM PO 08/21/17 09:00 09/20/17 08:59 UNV Metoprolol Tartrate (Lopressor Tab) 25 mg BID PO 08/21/17 09:00 09/20/17 08:59 UNV Metoprolol Tartrate (Lopressor Tab) 25 mg 1454 ONCE PO 08/20/17 14:54 08/20/17 14:55 UNV Review of Systems awake and alert with prompting but somewhat lethargic at times. Minimal complaints of pain. As above the LLE drainage and erythema noted. Dyspnea noted with any activity--denies chest pain No abdominal pain No complaints No new focal neurological changes. No GI complaints Physical Exam Date Time Temp Pulse Resp B/P (MAP) Pulse Ox O2 Delivery O2 Flow Rate FiO2 08/20/17 15:53 80 21 103/58 94 4.0 08/20/17 14:35 80 27 95 Nasal Cannula 4.0 08/20/17 14:31 115/68 08/20/17 14:00 85 29 115/74 95 Nasal Cannula 4.0 08/20/17 13:37 94 Nasal Cannula 3.0 08/20/17 13:30 95 26 107/73 95 Nasal Cannula 4.0 08/20/17 13:12 83 21 110/58 94 Nasal Cannula 3.0 08/20/17 13:11 84 08/20/17 12:19 94 24 115/60 95 Nasal Cannula 4.0 08/20/17 11:46 93 23 106/61 Nasal Cannula 4.0 08/20/17 11:00 94 Nasal Cannula 4.0 08/20/17 11:00 94 Nasal Cannula 4.0 08/20/17 10:48 94 Nasal Cannula 4.0 08/20/17 10:47 38.9 99 24 114/56 85 Room Air 08/20/17 10:47 Room Air 08/20/17 10:44 113 Gen--lethargic HEENT--no focal deficits Pulmonary--diminished in the bases--No wheezing Cardio--gallop noted--irregular. Somewhat distant--thick chest. TBF overload noted-- GI--obese--active, no guarding Musculo--no deformity Ext-stasis changes and edema substantial. LLE drainage noted with substantial erythema and warmth Neuro--lethargy but oriented to situation Laboratory Results Last 24 Hours Test 08/20/17 11:20 08/20/17 11:30 08/20/17 14:51 08/20/17 15:13 White Blood Count 13.76 K/uL Red Blood Count 4.07 M/uL Hemoglobin 12.1 g/dL Hematocrit 37.1 % Mean Corpuscular Volume 91.2 fL Mean Corpuscular Hemoglobin 29.7 pg Mean Corpuscular Hemoglobin Concent 32.6 g/dl Platelet Count 242 K/uL Mean Platelet Volume 9.2 fL Neutrophils (%) (Auto) 87.1 % Lymphocytes (%) (Auto) 7.8 % Monocytes (%) (Auto) 4.5 % Eosinophils (%) (Auto) 0.1 % Basophils (%) (Auto) 0.1 % Neutrophils # (Auto) 12.00 K/uL Lymphocytes # (Auto) 1.07 K/uL Monocytes # (Auto) 0.62 K/uL Eosinophils # (Auto) 0.01 K/uL Basophils # (Auto) 0.01 K/uL RDW Standard Deviation 44.7 fL RDW Coefficient of Variation 13.6 % Immature Granulocyte % (Auto) 0.4 % Immature Granulocyte # (Auto) 0.05 K/uL Prothrombin Time 12.7 SECONDS Prothromb Time International Ratio 1.2 Venous Blood pH 7.44 Venous Blood Partial Pressure CO2 48 mmHg Venous Blood Partial Pressure O2 35 mmHg Venous Blood HCO3 32 mmol/L Venous Blood Oxygen Saturation 65.9 % Venous Blood Base Excess 6.6 mEq/L Sodium Level 137 mmol/L Potassium Level 3.6 mmol/L Chloride Level 100 mmol/L Carbon Dioxide Level 29 mmol/L Anion Gap 8.0 mmol/L Blood Urea Nitrogen 13 mg/dl Creatinine 1.00 mg/dl Est Creatinine Clear Calc Drug Dose 72.8 ml/min Estimated GFR () 78.6 Estimated GFR (Non- 67.8 BUN/Creatinine Ratio 12.9 Random Glucose 119 mg/dl Lactic Acid Level 1.5 mmol/L Calcium Level 9.1 mg/dl Magnesium Level 1.5 mg/dl Total Bilirubin 1.0 mg/dl Direct Bilirubin 0.3 mg/dl Aspartate Amino Transf (AST/SGOT) 13 U/L Alanine Aminotransferase (ALT/SGPT) 13 U/L Alkaline Phosphatase 64 U/L Troponin I 0.031 ng/ml Pro-B-Type Natriuretic Peptide 2011 pg/ml Total Protein 7.1 gm/dl Albumin 3.1 gm/dl Lipase 60 U/L Urine Color DK YELLOW Urine Appearance CLEAR Urine pH 6.0 Urine Specific [place] 1.020 Urine Protein NEG Urine Glucose (UA) NEG Urine Ketones NEG Urine Occult Blood NEG Urine Nitrite NEG Urine Bilirubin NEG Urine Urobilinogen NEG Urine Leukocyte Esterase MODERATE Urine WBC (Auto) 5-10 /hpf Urine RBC (Auto) 0-4 /hpf Urine Hyaline Casts (Auto) 1-5 /lpf Urine Epithelial Cells (Auto) >30 /lpf Urine Bacteria (Auto) NEG Digoxin Level 0.6 ng/ml Diagnostic Results The doppler was negative Bicarb 29. WBC 13 BUN13/Cr1 INR 1.2 CXR--some congestive changes. Assessment & Plan Cellulitis and early sepsis--in setting of atrial fib/Cardiomyopathy/Pacer( needs new battery) 1. Cardio--will continue with cardiology and primary team plan. Will assist with monitoring in the ICU setting 2. Pulmonary--general support to provide. May require BiPAP 3. F/E/N--optimize 4. ID--broad coverage in place--cultures pending 5. Dispo--somewhat variable response to ACLS measures--During my interview he requested effort up to and not including CPR/Mechanical Vent.
[2017-08-20] MEDS ORDERED: PIPERACILL/TAZOBAC IV 3.375 GM in D5W 100ML IV STA (16:22)
[2017-08-20] MEDS ORDERED: NURSING DECISION MEDICATION ORDER SCH (17:00)
[2017-08-20] MEDS ORDERED: MICONAZOLE NITRATE POWDER 43 GM EXT PRN (17:15)
[2017-08-20] MEDS ORDERED: PIPERACILL/TAZOBAC IV 3.375 GM in DEXTROSE 5% 100ML 100 ML IV SCH (18:00)
[2017-08-20] MEDS ORDERED: FUROSEMIDE 80 MG TAB PO SCH (21:00)
[2017-08-20] MEDS: MAGNESIUM OXIDE 400 MG TAB PO SCH (21:08)
[2017-08-20] MEDS: POTASSIUM CHLORIDE 10 MEQ TABCR PO SCH (21:08)
[2017-08-20] MEDS: FUROSEMIDE INJ 40 MG in SYRINGE 0 ML IV SCH (21:08)
[2017-08-20] MEDS ORDERED: INSULIN IV INFUSION PROTOCOL STA (22:18)
[2017-08-20] MEDS ORDERED: INSULIN PROTOCOL GOAL RANGE ONE (22:30)
[2017-08-20] MEDS ORDERED: SEVERE STRESS LEVEL ONE (22:30)
[2017-08-20] MEDS ORDERED: DEXTROSE 50% 50 ML SYR IV PRN (22:45)
[2017-08-20] MEDS ORDERED: GLUCOSE 10 TABS/TUBE PO PRN (22:45)
[2017-08-20] MEDS ORDERED: NovoLIN R BOLUS FROM BAG IV ONE (22:45)
[2017-08-20] MEDS ORDERED: CARBOHYDRATES FOR HYPOGLYCEMIA PO PRN (22:45)
[2017-08-20] MEDS ORDERED: GLUCOSE 40% GEL 15 GM TUBE PO PRN (22:45)
[2017-08-20] MEDS ORDERED: INSULIN REGULAR 250 UNITS in SODIUM CHLORIDE 0.9% 250ML 250 ML IV SCH (22:45)
[2017-08-20] MEDS ORDERED: GLUCAGON FOR INJ 1 MG VIAL IM PRN (22:45)
[2017-08-20] MEDS ORDERED: VANCOMYCIN IV 1,250 MG in SODIUM CHLORIDE 0.9% 250ML 250 ML IV SCH (23:00)
[2017-08-21] VITALS (18 sets, daily range): BP systolic 92–126; BP diastolic 60–79; PULSE 78–84; TEMP 36–36.6; O2SAT 91–98
[2017-08-21] MEDS ORDERED: PIPERACILL/TAZOBAC IV 3.375 GM in D5W 100ML IV SCH ×2
[2017-08-21 04:36] LABS: BASO % 0.1 %; BASO ABS # 0.01 K/uL (0-0.2); HEMATOCRIT 38.8 % (42-52); HEMOGLOBIN 12.5 g/dL (14.0-18.0); IG# 0.04 K/uL (0.00-0.02); LYMPH % 6.5 %; LYMPH ABS # 0.83 K/uL (1.2-3.4); MEAN CELL VOLUME 92.4 fL (80-100); MEAN CORPUSCULAR HEMOGLOBIN 29.8 pg (25-34); MEAN CORPUSCULAR HGB CONC 32.2 g/dl (32-36); MEAN PLATELET VOLUME 9.3 fL (7.4-10.4); MONO % 4.9 %; MONO ABS # 0.62 K/uL (0.11-0.59); NEUT % 88.2 %; NEUT ABS # 11.27 K/uL (1.4-6.5); PLATELET COUNT 262 K/uL (130-400); RED CELL DISTRIBUTION WIDTH CV 13.5 % (11.5-14.5); RED CELL DISTRIBUTION WIDTH SD 45.3 fL (36.4-46.3); WHITE BLOOD COUNT 12.77 K/uL (4.8-10.8)
[2017-08-21 04:59] LABS: CALCIUM 9.4 mg/dl (8.5-10.1); CREATININE 1.09 mg/dl (0.60-1.40); PHOSPHORUS 2.1 mg/dl (2.5-4.9); POTASSIUM 3.6 mmol/L (3.5-5.1); TOTAL PROTEIN 7.3 gm/dl (6.4-8.2)
[2017-08-21] MEDS ORDERED: POTASSIUM PHOS 3 MMOL/1 ML INFUSION IV STA (06:29)
[2017-08-21] MEDS ORDERED: PERFLUTREN LIPID MICROSPHERE (DEFINITY) IV ONE (07:01)
[2017-08-21] MEDS ORDERED: POTASSIUM PHOSPHATE INJ 6 MMOL in SODIUM CHLORIDE 0.9% 250ML 250 ML IV ONE (07:15)
--- NOTE | 2017-08-21 07:30 | Critical Care Progress Note ---
Critical Care Progress Note Date of Service August 21, 2017. ICU Day ICU Day Number: [address] Rivero Subjective No complaints, denies chest pain, shortness of breath, reports did not get enough breakfast this morning. Objective General: Alert. nontoxic. Skin: Warm, dry, Head: Atraumatic Ears, nose, mouth and throat: airway patent Cardiovascular: Normal peripheral perfusion Respiratory: no respiratory distress Gastrointestinal: Non distended Musculoskeletal: No deformity, bronzing of bilateral lower extremities consistent with chronic venous stasis. 2+ pitting edema Assessment & Plan PLAN: Resp: History COPD Likely obstructive sleep apnea -Possible outpatient follow-up for sleep study CV: Acute decompensated heart failure -Improved, negative approximately 1 L -Digoxin level within appropriate limits September 15 appointment for battery replacement of pacer Fluids/Renal: Continue diuresis - On 80 mg Lasix twice daily as outpatient -Fluid restriction of 1500 mL's ID: Bilateral lower extremity cellulitis Possible bacteremia, 1 of 2 cultures positive for gram-positive cocci -Currently on IV vancomycin -Discontinue Zosyn -Order echocardiogram given pacemaker -Repeat blood cultures GI/Nutrition: ADA diet -1500 mL fluid restriction Heme: Chronic anticoagulation with Xarelto secondary to permanent A. fib Leukocytosis Endocrine: Hyperglycemia - Transition to SubQ insulin Vascular access: Peripheral IV Code Status: DO NOT RESUSCITATE, DO NOT INTUBATE in event of cardiac arrest, confirm this with the patient this morning Data Medications: Current Inpatient Medications Medications (Trade) Dose Ordered Sig/Hernandez Route Start Time Stop Time Status Last Admin Dose Admin Miscellaneous Information (Consult) 1 ea UD PRN N/A 08/20/17 14:30 09/19/17 14:29 Digoxin (Lanoxin Tab) 0.125 mg DAILY PO 08/21/17 09:00 09/20/17 08:59 Escitalopram Oxalate (Lexapro Tab) 10 mg DAILY PO 08/21/17 09:00 09/20/17 08:59 Rivaroxaban (Xarelto Tab) 20 mg DAILY PO 08/21/17 09:00 09/20/17 08:59 Tamsulosin HCl (Flomax Cap) 0.4 mg QAM PO 08/21/17 09:00 09/20/17 08:59 Pantoprazole Sodium (Protonix Tab) 40 mg QAM PO 08/21/17 09:00 09/20/17 08:59 Metoprolol Tartrate (Lopressor Tab) 25 mg BID PO 08/21/17 09:00 09/20/17 08:59 Furosemide 40 mg/ Syringe 4 ml @ 4 mls/min BID IV 08/20/17 21:00 09/19/17 20:59 08/20/17 21:08 4 MLS/MIN Piperacillin Sod/ Tazobactam Sod 3.375 gm/Dextrose 115 ml @ 28.75 mls/ hr Q8@0000,0800,1600 IV 08/21/17 00:00 08/28/17 00:00 08/20/17 23:17 28.75 MLS/HR Magnesium Oxide (Mag-Ox Tab) 400 mg BID PO 08/20/17 21:00 09/19/17 20:59 08/20/17 21:08 400 MG Potassium Chloride (Klor-Con M10) 10 meq BID PO 08/20/17 21:00 09/19/17 20:59 08/20/17 21:08 10 MEQ Miconazole Nitrate (Desenex Powder) 1 appln UD PRN EXT 08/20/17 17:15 09/19/17 17:14 08/20/17 18:22 1 APPLN Vancomycin HCl 1250 mg/Sodium Chloride 275 ml @ 125 mls/hr Q12H IV 08/20/17 23:00 08/27/17 22:59 08/20/17 22:35 125 MLS/HR Miscellaneous Information (Consult) 1 ea UD PRN N/A 08/20/17 17:30 09/19/17 17:29 Insulin Aspart (novoLOG ASPART) SLIDING SCALE [facility] 08/21/17 08:00 09/20/17 07:59 Insulin Human Regular 250 units/ Sodium Chloride 252.5 ml @ 0 mls/hr Q24H IV 08/20/17 22:45 09/19/17 22:44 08/20/17 23:15 4.5 MLS/HR Glucose (Glucose 40% Gel) 15-30 GRAMS 15 GRAMS... UD PRN PO 08/20/17 22:45 09/19/17 22:44 Glucose (Glucose Chew Tab) 4-8 Tablets 4 Tabl... UD PRN PO 08/20/17 22:45 09/19/17 22:44 Dextrose (Dextrose 50% 50ML Syringe) 25-50ML 25ML FOR ... UD PRN IV 08/20/17 22:45 09/19/17 22:44 Glucagon (Glucagon Inj) 1 mg UD PRN IM 08/20/17 22:45 09/19/17 22:44 Carbohydrates (Carbohydrates For Hypoglycemia) 15-30 GRAMS 15 grams if BSG 54-69... UD PRN PO 08/20/17 22:45 09/19/17 22:44 Potassium Phosphate 6 mmol/ Sodium Chloride 252 ml @ 88 mls/hr TODAY@0715 ONCE IV 08/21/17 07:15 08/21/17 10:06 Vital Signs: Date Time Temp Pulse Resp B/P (MAP) Pulse Ox O2 Delivery O2 Flow Rate FiO2 08/21/17 06:01 79 18 126/69 (88) 94 Nasal Cannula 2.0 Humidified Oxygen 08/21/17 05:01 80 22 115/75 (88) 97 Nasal Cannula 2.0 Humidified Oxygen 08/21/17 04:01 36.5 79 22 109/63 (78) 96 Nasal Cannula 2.0 Humidified Oxygen 08/21/17 04:00 97 Nasal Cannula 2.0 Humidified Oxygen 08/21/17 03:01 80 19 113/67 (82) 95 Nasal Cannula 2.0 Humidified Oxygen 08/21/17 02:01 80 20 104/66 (79) 94 Nasal Cannula 2.0 Humidified Oxygen 08/21/17 01:01 80 20 109/62 (78) 98 Nasal Cannula 2.0 Humidified Oxygen 08/21/17 00:01 98 Nasal Cannula 2.0 Humidified Oxygen 08/21/17 00:01 36.6 80 22 122/79 (93) 98 Nasal Cannula 2.0 Humidified Oxygen 08/20/17 23:01 80 20 113/67 (82) 93 Nasal Cannula 2.0 Humidified Oxygen 08/20/17 22:01 81 23 104/60 (75) 96 Nasal Cannula 2.0 Humidified Oxygen 08/20/17 21:01 81 25 102/58 (73) 96 Nasal Cannula 2.0 Humidified Oxygen 08/20/17 20:01 36.5 78 18 87/56 (66) 95 Nasal Cannula 2.0 Humidified Oxygen 08/20/17 20:00 97 Nasal Cannula 2.0 Humidified Oxygen 08/20/17 19:01 80 18 104/59 (74) 99 Nasal Cannula 2.0 Humidified Oxygen 08/20/17 18:32 79 19 101/57 (72) 97 Nasal Cannula 3.0 Humidified Oxygen 08/20/17 18:05 79 17 92/51 (65) 96 Nasal Cannula 4.0 Humidified Oxygen 08/20/17 16:20 36.5 78 24 111/56 (74) 96 Nasal Cannula 4.0 Humidified Oxygen 08/20/17 15:54 80 103/58 94 08/20/17 15:53 80 21 103/58 94 4.0 08/20/17 14:35 80 27 95 Nasal Cannula 4.0 08/20/17 14:31 115/68 08/20/17 14:00 85 29 115/74 95 Nasal Cannula 4.0 08/20/17 13:37 94 Nasal Cannula 3.0 08/20/17 13:30 95 26 107/73 95 Nasal Cannula 4.0 08/20/17 13:12 83 21 110/58 94 Nasal Cannula 3.0 08/20/17 13:11 84 08/20/17 12:19 94 24 115/60 95 Nasal Cannula 4.0 08/20/17 11:46 93 23 106/61 Nasal Cannula 4.0 08/20/17 11:00 94 Nasal Cannula 4.0 08/20/17 11:00 94 Nasal Cannula 4.0 08/20/17 10:48 94 Nasal Cannula 4.0 08/20/17 10:47 38.9 99 24 114/56 85 Room Air 08/20/17 10:47 Room Air 08/20/17 10:44 113 Laboratory Results: Last 24 Hours Test 08/20/17 11:20 08/20/17 11:30 08/20/17 14:51 08/20/17 18:01 White Blood Count 13.76 K/uL Red Blood Count 4.07 M/uL Hemoglobin 12.1 g/dL Hematocrit 37.1 % Mean Corpuscular Volume 91.2 fL Mean Corpuscular Hemoglobin 29.7 pg Mean Corpuscular Hemoglobin Concent 32.6 g/dl Platelet Count 242 K/uL Mean Platelet Volume 9.2 fL Neutrophils (%) (Auto) 87.1 % Lymphocytes (%) (Auto) 7.8 % Monocytes (%) (Auto) 4.5 % Eosinophils (%) (Auto) 0.1 % Basophils (%) (Auto) 0.1 % Neutrophils # (Auto) 12.00 K/uL Lymphocytes # (Auto) 1.07 K/uL Monocytes # (Auto) 0.62 K/uL Eosinophils # (Auto) 0.01 K/uL Basophils # (Auto) 0.01 K/uL RDW Standard Deviation 44.7 fL RDW Coefficient of Variation 13.6 % Immature Granulocyte % (Auto) 0.4 % Immature Granulocyte # (Auto) 0.05 K/uL Prothrombin Time 12.7 SECONDS Prothromb Time International Ratio 1.2 Venous Blood pH 7.44 Venous Blood Partial Pressure CO2 48 mmHg Venous Blood Partial Pressure O2 35 mmHg Venous Blood HCO3 32 mmol/L Venous Blood Oxygen Saturation 65.9 % Venous Blood Base Excess 6.6 mEq/L Sodium Level 137 mmol/L Potassium Level 3.6 mmol/L Chloride Level 100 mmol/L Carbon Dioxide Level 29 mmol/L Anion Gap 8.0 mmol/L Blood Urea Nitrogen 13 mg/dl Creatinine 1.00 mg/dl Est Creatinine Clear Calc Drug Dose 72.8 ml/min Estimated GFR () 78.6 Estimated GFR (Non- 67.8 BUN/Creatinine Ratio 12.9 Random Glucose 119 mg/dl Lactic Acid Level 1.5 mmol/L Calcium Level 9.1 mg/dl Magnesium Level 1.5 mg/dl Total Bilirubin 1.0 mg/dl Direct Bilirubin 0.3 mg/dl Aspartate Amino Transf (AST/SGOT) 13 U/L Alanine Aminotransferase (ALT/SGPT) 13 U/L Alkaline Phosphatase 64 U/L Troponin I 0.031 ng/ml Pro-B-Type Natriuretic Peptide 2011 pg/ml Total Protein 7.1 gm/dl Albumin 3.1 gm/dl Lipase 60 U/L Urine Color DK YELLOW Urine Appearance CLEAR Urine pH 6.0 Urine Specific [place] 1.020 Urine Protein NEG Urine Glucose (UA) NEG Urine Ketones NEG Urine Occult Blood NEG Urine Nitrite NEG Urine Bilirubin NEG Urine Urobilinogen NEG Urine Leukocyte Esterase MODERATE Urine WBC (Auto) 5-10 /hpf Urine RBC (Auto) 0-4 /hpf Urine Hyaline Casts (Auto) 1-5 /lpf Urine Epithelial Cells (Auto) >30 /lpf Urine Bacteria (Auto) NEG Digoxin Level 0.6 ng/ml Bedside Glucose 205 mg/dl Test 08/20/17 21:12 08/20/17 22:05 08/21/17 00:13 08/21/17 01:17 Bedside Glucose 210 mg/dl 219 mg/dl 186 mg/dl 139 mg/dl Test 08/21/17 03:07 08/21/17 04:06 08/21/17 04:21 08/21/17 05:21 Bedside Glucose 117 mg/dl 140 mg/dl 136 mg/dl White Blood Count 12.77 K/uL Red Blood Count 4.20 M/uL Hemoglobin 12.5 g/dL Hematocrit 38.8 % Mean Corpuscular Volume 92.4 fL Mean Corpuscular Hemoglobin 29.8 pg Mean Corpuscular Hemoglobin Concent 32.2 g/dl Platelet Count 262 K/uL Mean Platelet Volume 9.3 fL Neutrophils (%) (Auto) 88.2 % Lymphocytes (%) (Auto) 6.5 % Monocytes (%) (Auto) 4.9 % Eosinophils (%) (Auto) 0.0 % Basophils (%) (Auto) 0.1 % Neutrophils # (Auto) 11.27 K/uL Lymphocytes # (Auto) 0.83 K/uL Monocytes # (Auto) 0.62 K/uL Eosinophils # (Auto) 0.00 K/uL Basophils # (Auto) 0.01 K/uL RDW Standard Deviation 45.3 fL RDW Coefficient of Variation 13.5 % Immature Granulocyte % (Auto) 0.3 % Immature Granulocyte # (Auto) 0.04 K/uL Sodium Level 138 mmol/L Potassium Level 3.6 mmol/L Chloride Level 101 mmol/L Carbon Dioxide Level 34 mmol/L Anion Gap 3.0 mmol/L Blood Urea Nitrogen 18 mg/dl Creatinine 1.09 mg/dl Est Creatinine Clear Calc Drug Dose 66.8 ml/min Estimated GFR () 70.9 Estimated GFR (Non- 61.1 BUN/Creatinine Ratio 16.5 Random Glucose 113 mg/dl Calcium Level 9.4 mg/dl Phosphorus Level 2.1 mg/dl Magnesium Level 2.0 mg/dl Total Bilirubin 0.9 mg/dl Aspartate Amino Transf (AST/SGOT) 13 U/L Alanine Aminotransferase (ALT/SGPT) 13 U/L Alkaline Phosphatase 63 U/L Total Protein 7.3 gm/dl Albumin 3.0 gm/dl Globulin 4.3 gm/dl Albumin/Globulin Ratio 0.7 Procalcitonin 0.35 ng/ml
[2017-08-21] MEDS: RIVAROXABAN 20 MG TAB PO SCH (07:51)
[2017-08-21] MEDS: TAMSULOSIN HCL 0.4 MG CAP PO SCH (07:51)
[2017-08-21] MEDS: PANTOprazole SOD 40 MG TAB PO SCH (07:52)
[2017-08-21] MEDS: METOPROLOL TARTRATE 25 MG TAB PO SCH ×2 (07:52→21:00)
[2017-08-21] MEDS: ESCITALOPRAM OXALATE 10 MG TAB PO SCH (07:52)
[2017-08-21] MEDS: DIGOXIN 0.125 MG TAB PO SCH (07:53)
[2017-08-21] MEDS: FUROSEMIDE INJ 40 MG in SYRINGE 0 ML IV SCH ×2 (07:59→21:20)
[2017-08-21] MEDS: INSULIN ASPART 100 UNITS/ML 3 ML PEN SC SCH ×5 (08:18→20:30)
[2017-08-21 08:28] LABS: HEMOGLOBIN A1C 6.1 % (4.5-5.6)
[2017-08-21] MEDS ORDERED: PHARMACY GLYCEMIC MGMT CONSULT PRN (08:30)
--- NOTE | 2017-08-21 08:34 | Clinical Documentation Query ---
QUERY 1 OF [address] LIRA, In your clinical opinion is this patient being managed for: ( x ) Sepsis POA ( ) Not Agree ( ) Other explanation of clinical findings (No explanation is considered a No Response) ( ) Unable to determine ( ) Need to Discuss (Phone CDS or qliq) (No discussion is considered a No Response) The medical record reflects the following clinical findings, treatment, and risk factors. Clinical Indicators: 87 yo male presenting with worsening respiratory distress and LE cellulitis. Per ER note, pt taking tylenol, experiencing chills prior to ER arrival. T38.9, HR 113, RR 24,BP 114/56. Blood glucose 119, WBC 13.76. Treatment: ICU, IV vancomycin, IV zosyn, blood cultures, insulin gtt, O2 support, Risk Factors: age, LE cellulitis, COPD, A fib, obesity QUERY 2 OF 4 In your clinical opinion is this patient being managed for: ( x ) Acute on chronic systolic CHF ( ) Not Agree ( ) Other explanation of clinical findings (No explanation is considered a No Response) ( ) Unable to determine ( ) Need to Discuss (Phone CDS or qliq) (No discussion is considered a No Response) The medical record reflects the following clinical findings, treatment, and risk factors. Clinical Indicators: Documentation in the ER impression indicates CHF, Cardiology consult indicates acute heart failure decompensation. Noted hx of chronic systolic CHF. BNP 2010, CXR with An element of mild pulmonary vascular congestion must be considered. Dyspneic with O2 sat 85% on RA. Treatment: ICU, pending ECHO results, IV lasix, O2 support, cardiology consult, martinez cath, CHF teaching, I/O, daily wts Risk Factors: age, permanent A fib with pacemaker at end of life/needs battery replacement, COPD, sepsis QUERY 3 OF 4 In your clinical opinion is this patient being managed for: ( x ) Metabolic encephalopathy ( ) Not Agree ( ) Other explanation of clinical findings (No explanation is considered a No Response) ( ) Unable to determine ( ) Need to Discuss (Phone CDS or qliq) (No discussion is considered a No Response) The medical record reflects the following clinical findings, treatment, and risk factors. Clinical Indicators: Pt described as lethargic. WBC 13.76, O2 sat 85% on RA, T 38.9. Treatment: IV vancomycin, IV zosyn, nebs, IV lasix, insulin gtt, ICU monitoring, O2 support Risk Factors: sepsis, LE cellulitis, respiratory failure QUERY 4 OF 4 In your clinical opinion is this patient being managed for: ( x ) Acute hypoxic respiratory failure ( ) Not Agree ( ) Other explanation of clinical findings (No explanation is considered a No Response) ( ) Unable to determine ( ) Need to Discuss (Phone CDS or qliq) (No discussion is considered a No Response) The medical record reflects the following clinical findings, treatment, and risk factors. Clinical Indicators: ER describes pt as dyspneic, fatigued, ill appearing. RR 24-29, O2 sat 85% on RA Treatment: CXR, ICU, IV lasix, IV solumedrol, duonebs, cardiology consult, O2 support Risk Factors: sepsis, acute systolic CHF, COPD Please clarify and document your clinical opinion in the progress notes and discharge summary. Terms such as "probable", "suspected", "likely", "questionable", "possible", or "still to be ruled out" are acceptable. IF IN AGREEMENT, YOU MUST DOCUMENT ABOVE DIAGNOSTIC STATEMENT IN DAILY PROGRESS NOTES AND DISCHARGE SUMMARY. This document is not part of the patient's record. Thank You, Natividad Richter RN [phone]
[2017-08-21] MEDS ORDERED: AMOXICILLIN/CLAVULANATE TAB 875 MG TAB PO SCH (09:00)
[2017-08-21] MEDS ORDERED: NovoLIN-N (NPH) PER UNIT CHARGE SQ ONE (09:00)
--- NOTE | 2017-08-21 09:06 | ECHOCARDIOGRAM REPORT ---
*NOTICE TO RECEIVING [employer] [employer] This information is strictly Confidential and protected under [place] law. [place] law prohibits you from making any further disclosure of this information unless further disclosure is expressly permitted by the written consent of the person to whom it pertains or is authorized by law. A general authorization for the release of medical or other information is not sufficient for this purpose. Hospital accepts no responsibility if the information is made available to any other person, INCLUDING THE PATIENT. Interpretation Summary * Name: MAURA OTT Study Date: 08/21/2017 06:43 AM BP: 126/69 mmHg * [facility] HR: 79 * : 1930 (M/d/yyy) Gender: Male Height: 74 in * Age: 87 yrs Ethnicity: [place] Weight: 263 lb * Ordering Physician: Marty Palumbo * Performed By: Lashanda Manrique RDCS * * Reason For Study: CHF * BSA: 2.4 m2 * -- Conclusions -- * There is mild concentric left ventricular hypertrophy. * The left ventricle is moderately dilated. * There is severe global hypokinesis of the left ventricle. * Left ventricular systolic function is severely reduced. * The Left ventricular Ejection Fraction = 20-25%. * The aortic valve is calcified to a mild to moderate degree. * Mild valvular aortic stenosis is present. * There is mild mitral regurgitation. * There is mild tricuspid regurgitation. * Mild pulmonary artery hypertension is present. * The calculated pulmonary artery systolic pressure is 40 mmHg. Procedure Details * A complete two-dimensional transthoracic echocardiogram was performed (2D, M-mode, Doppler and color flow Doppler). * A contrast injection of Definity was performed to improve assessment of LV function. * Contrast was injected into an intravenous site in the left arm. * One vial of Definity ultrasound contrast was diluted in normal saline to a total volume of 10 ml. A total of '3' ml of solution was administered during imaging. * Lot # [id number] of Definity utilized for procedure. * Expiration date 07/20. * The attending nurse who injected the contrast agent was QUIANA ALICEA RN. Left Ventricle * The left ventricle is moderately dilated. * There is mild concentric left ventricular hypertrophy. * Left ventricular systolic function is severely reduced. * Ejection Fraction = 20-25%. * There is severe global hypokinesis of the left ventricle. Right Ventricle * The right ventricle is normal size. * The right ventricular systolic function is normal as assessed by tricuspid annular plane systolic excursion (TAPSE) (normal >1.5 cm). Atria * The left atrium is severely dilated. * Interatrial septum is displaced toward the right atrium consistent with elevated left atrial pressure. * Right atrial size is normal. * Intracardiac device lead is noted in the right atrium. * There is no evidence of atrial septal defect, but resolution does not allow assessment for a patent foramen ovale. Mitral Valve * The mitral valve is normal. * There is no mitral valve stenosis. * There is mild mitral regurgitation. Tricuspid Valve * The tricuspid valve is normal. * There is no tricuspid stenosis. * There is mild tricuspid regurgitation. * Mild pulmonary artery hypertension is present. The calculated pulmonary artery systolic pressure is 40 mmHg. Aortic Valve * The aortic valve is trileaflet. * The aortic valve is calcified to a mild to moderate degree. * Mild valvular aortic stenosis. * There is no significant aortic regurgitation. Pulmonic Valve * The pulmonary valve is not well seen, but the Doppler examination is normal without significant regurgitation or stenosis. Great Vessels * The aortic root and proximal ascending aorta are normal sized. Pericardium/Pleural * There is no pericardial effusion. Right Ventricle * An intracardiac device lead is noted in the right ventricle. Great Vessels * Intermediate inferior vena cava diameter with decreased inspiratory collapse is noted consistent with a right atrial pressure of 8 mmHg. Left Ventricular Diastolic Function * Left ventricular diastolic function is abnormal based on left ventricular systolic dysfunction and left atrial enlargement. Diastolic function is not graded due to the presence of underlying atrial fibrillation. MMode 2D Measurements and Calculations IVSd 1.3 cm IVSs 1.8 cm LVIDd 6.3 cm LVIDs 5.5 cm LVPWd 1.5 cm LVPWs 2.2 cm IVS/LVPW 0.88 FS 12.2 % EDV(Teich) 202.5 ml ESV(Teich) 150.4 ml EF(Teich) 25.7 % EDV(cubed) 252.1 ml ESV(cubed) 170.7 ml EF(cubed) 32.3 % % IVS thick 37.4 % % LVPW thick 45.7 % LV mass(C)d 417.1 grams LV mass(C)dI 170.8 grams/m\S\2 LV mass(C)s 569.3 grams LV mass(C)sI 233.2 grams/m\S\2 CO(Teich) 4.3 l/min CI(Teich) 1.7 l/min/m\S\2 SV(Teich) 52.1 ml SI(Teich) 21.3 ml/m\S\2 CO(cubed) 6.7 l/min CI(cubed) 2.7 l/min/m\S\2 SV(cubed) 81.4 ml SI(cubed) 33.3 ml/m\S\2 EPSS 1.8 cm LA dimension 5.8 cm asc Aorta Diam 4.0 cm LVOT diam 2.5 cm LVOT area 4.8 cm\S\2 LVAd ap4 56.5 cm\S\2 LVLd ap4 10.0 cm EDV(MOD-sp4) 265.0 ml LVAs ap4 49.4 cm\S\2 LVLs ap4 10.2 cm ESV(MOD-sp4) 196.0 ml EF(MOD-sp4) 26.0 % LVAd ap2 62.2 cm\S\2 LVLd ap2 10.7 cm EDV(MOD-sp2) 297.0 ml LVAs ap2 52.1 cm\S\2 LVLs ap2 10.5 cm ESV(MOD-sp2) 214.0 ml EF(MOD-sp2) 27.9 % CO(MOD-sp4) 5.7 l/min CI(MOD-sp4) 2.3 l/min/m\S\2 SV(MOD-sp4) 69.0 ml SI(MOD-sp4) 28.3 ml/m\S\2 CO(MOD-sp2) 6.8 l/min CI(MOD-sp2) 2.8 l/min/m\S\2 SV(MOD-sp2) 83.0 ml SI(MOD-sp2) 34.0 ml/m\S\2 Doppler Measurements and Calculations MV E max suha 108.7 cm/sec MV A max suha 41.2 cm/sec MV E/A 2.6 MV dec time 0.18 sec Ao V2 max 128.3 cm/sec Ao max PG 7.7 mmHg MR max suha 428.9 cm/sec MR max PG 73.6 mmHg PA V2 max 68.9 cm/sec PA max PG 1.9 mmHg TR max suha 283.7 cm/sec
[2017-08-21] MEDS: POTASSIUM CHLORIDE 10 MEQ TABCR PO SCH ×2 (09:10→21:20)
[2017-08-21] MEDS: MAGNESIUM OXIDE 400 MG TAB PO SCH ×2 (09:10→21:20)
--- NOTE | 2017-08-21 09:24 | Pharmacy Progress Note ---
Glycemic Control Intl Consult Date of Service August 21, 2017. Scope Glycemic Pharmacist consulted by Dr Barahona on 08/21/17 for glycemic control and to write orders per [facility] inpatient glycemic control protocol Objective Weight (Kilograms): 116.200 Accuchecks BSG (last 24hrs): Test 08/20/17 11:20 08/20/17 18:01 08/20/17 21:12 08/20/17 22:05 Random Glucose 119 mg/dl (70-99) Bedside Glucose 205 mg/dl (70-99) 210 mg/dl (70-99) 219 mg/dl (70-99) Test 08/21/17 00:13 08/21/17 01:17 08/21/17 03:07 08/21/17 04:06 Bedside Glucose 186 mg/dl (70-99) 139 mg/dl (70-99) 117 mg/dl (70-99) 140 mg/dl (70-99) Test 08/21/17 04:21 08/21/17 05:21 08/21/17 08:38 Random Glucose 113 mg/dl (70-99) Bedside Glucose 136 mg/dl (70-99) 134 mg/dl (70-99) Laboratory Data (last 24hrs) Test 08/20/17 11:20 08/21/17 04:21 Anion Gap 8.0 mmol/L 3.0 mmol/L BUN/Creatinine Ratio 12.9 16.5 Blood Urea Nitrogen 13 mg/dl 18 mg/dl Creatinine 1.00 mg/dl 1.09 mg/dl Potassium Level 3.6 mmol/L 3.6 mmol/L Sodium Level 137 mmol/L 138 mmol/L White Blood Count 13.76 K/uL 12.77 K/uL Red Blood Count 4.07 M/uL 4.20 M/uL Hemoglobin 12.1 g/dL 12.5 g/dL Hematocrit 37.1 % 38.8 % Mean Corpuscular Volume 91.2 fL 92.4 fL Mean Corpuscular Hemoglobin 29.7 pg 29.8 pg Mean Corpuscular Hemoglobin Concent 32.6 g/dl 32.2 g/dl Platelet Count 242 K/uL 262 K/uL Mean Platelet Volume 9.2 fL 9.3 fL Neutrophils (%) (Auto) 87.1 % 88.2 % Lymphocytes (%) (Auto) 7.8 % 6.5 % Monocytes (%) (Auto) 4.5 % 4.9 % Eosinophils (%) (Auto) 0.1 % 0.0 % Basophils (%) (Auto) 0.1 % 0.1 % Neutrophils # (Auto) 12.00 K/uL 11.27 K/uL Lymphocytes # (Auto) 1.07 K/uL 0.83 K/uL Monocytes # (Auto) 0.62 K/uL 0.62 K/uL Eosinophils # (Auto) 0.01 K/uL 0.00 K/uL Basophils # (Auto) 0.01 K/uL 0.01 K/uL Hemoglobin A1c 6.1 % HbA1c Test 08/21/17 04:21 Hemoglobin A1c 6.1 % (4.5-5.6) H Recent Pertinent Medications Outpatient Anti-diabetic Regimen: * No prior hx or treatment for DM * A1c = 6.1% 08/21/17 The patient is currently receiving: * IV insulin infusion per severe stress protocol; goal 110-180mg/dL Risk Factors for Insulin Resistance: * Steroids: Solu-Medrol 125mg given yesterday @1121 * Infection: lower ext cellulitis * Diet: ordered AHA, fluid restricted diet Assessment & Plan ASSESSMENT: 08/21/17 * Pre-diabetic admitted yesterday for fever, increased lower extremity redness/ edema, and SOB * Pt found to be in a fib, likely with CHF exacerbation as well, and felt to have lower ext cellulitis * IV steroids were given in the ED. This combined with pt's evening meal that was high in carbs likely led to the hyperglycemia observed * IV insulin infusion currently running at 1.8units/hr this AM and BSGs at goal in the 130's * Effects of Solu-medrol should dissipate soon. He is pre-diabetic and has some underlying insulin resistance. Will give one time dose of NPH this AM to provide some additional basal coverage in an attempt to wean to SQ regimen. He likely will not require basal insulin unless some underlying stressor surfaces. * Will order Novolog SQ correction scale once drip d/c'd. Will refrain from ordering prandial insulin at this time but follow pp-BSG trend PLAN FOR INPATIENT GLYCEMIC CONTROL: * NPH 10 units SQ x 1 * DC insulin drip 2 hrs after NPH * Novolog SQ ACHS * Correction factor 25 mg/dl/unit * No carb ratio * Goal range Low 110 mg/dL - High 140 mg/dL * Please note that the plan above was derived based on current level of insulin resistance and hospital stress. These recommendations are appropriate for inpatient admission only. Plan of care upon discharge will need to be reassessed to avoid potential outpatient hypo/hyperglycemia. Thank you.
--- NOTE | 2017-08-21 09:48 | Pharmacy Progress Note ---
Pharmacy Abx Dose Short Note Date of Service August 21, 2017. Assessment & Plan Assessment * 87 year old male admitted yesterday for lower extremity redness/swelling/ cellulitis as well as SOB and fever * No infiltrates noted on CXR, however cardiomegaly and pulm vasc congestion present. * He is a former smoker w/ h/o COPD. * Empiric vancomycin + Zosyn started however Zosyn d/c'd this AM as suspected source of infxn is cellulitis and need to cover anaerobes and gram negatives likely unnecessary. * 1 bottle of 1 set of BLCX's is growing GPC in clusters - vancomycin to continue; nasal swab was negative for MRSA * Currently afebrile and VSS; Procal 0.35 making sepsis unlikely * Renal fxn likely unchanged this AM vs admission Plan Vancomycin * 2000mg load x 1 given yesterday afternoon * Maintenance dose: 1250 (~10.8mg/kg) IV Q 12 hours * Goal trough level for bacteremia : 15 to 20 mcg/mL * Will check trough level with 4th dose if therapy continues * P'kinetic estimates: Vd 0.7L/kg; half-life ~11-12 hours Pharmacy will continue to follow and will adjust dose/frequency as necessary. Thank you.
--- NOTE | 2017-08-21 09:49 | DIAGNOSTIC IMAGING REPORT ---
CHEST ONE VIEW PORTABLE CLINICAL HISTORY: 87 years-old Male presenting with CHF. TECHNIQUE: Portable upright AP view of the chest was obtained. COMPARISON: 08/20/2017. FINDINGS: Left subclavian implanted cardiac defibrillator with leads to the right atrium, coronary sinus, and right ventricular apex. Atherosclerosis of the aortic arch. Comments of pulmonary vasculature. Moderate cardiomegaly. Trace bilateral pleural effusions may be present, greater on the left. No focal opacity. Degenerative changes of the thoracic spine. Degenerative changes of the right glenohumeral joint. IMPRESSION: 1. Cardiomegaly with mild volume overload and possible trace bilateral pleural effusions. This is not significantly changed from yesterday's exam. Electronically signed by: Gilberto Thakkar M.D. 08/21/2017 9:48 AM Dictated Date/Time: 08/21/2017 9:46 AM
[2017-08-21] MEDS ORDERED: [UNRECOGNIZED DRUG - REMARK] ONE (11:15)
[2017-08-21] MEDS ORDERED: INSULIN ASPART 100 UNITS/ML 3 ML PEN SC SCH (12:00)
--- NOTE | 2017-08-21 12:02 | Cardiology Follow-Up ---
Subjective General Date of Service: August 21, 2017. Chief Complaint: follow up lethargy, fever, edema, shortness of breath Pt evaluation today including: conversation w/ patient, physical exam History of Present Illness The patient is a 87 year old male seen in cardiology follow up. Since I had first assessed the patient he had been admitted from the ED to the first floor ICU. His fever resolved overnight and he is much improved. Yesterday, he was not able to complete more than 1 sentence before drifting to sleep. Today he is alert , sitting at the edge of the bed and conversant. Energy improved. LE edema and LLE erythema has improved. Telemetry reveals underlying AF, rate controlled with frequent ventricular pacing. Allergies Coded Allergies: No Known Allergies (Unverified , 08/20/17) Social History Smoking Status: Former Smoker Hx Alcohol Use - Type And Amou: No Hx Substance Use - Type And Am: No Problem List Medical Problems: (1) Cellulitis Status: Acute (2) CHF (congestive heart failure) Status: Acute (3) Sepsis Status: Acute Physical Exam Vital Signs Last Vital Signs Documentation Date Time Temp Pulse Resp B/P (MAP) Pulse Ox O2 Delivery O2 Flow Rate FiO2 08/21/17 11:46 36.6 84 18 92 08/21/17 11:44 115/75 (88) 08/21/17 10:00 Room Air 08/21/17 09:00 2.0 Physical Exam Constitutional: Level of Distress: NAD, chronically ill Neck: supple Lungs: Auscultation: no wheezing, no rales/crackles, pertinent finding (mildly decreased breath sounds at the bases bilaterally) Cardiovascular: Heart Auscultation: RRR, pertinent finding (1/6 SM. ) Abdomen: Inspection & Palpation: soft Extremities: pertinent finding (1-2+ edema, LLE edema from knee to ankle improving compared to 08/20 exam) Neurologic: Gait & Station: pertinent finding (no focal deficits. More alert.) Assessment and Plan Assessment and Plan Impression: 87 year old male 1. Acute decompensation, chronic systolic heart failure -Echocardiogram reveals severe global hypokinesis, LVEF 20-25% 2. Persistent AF 3. left lower extremity cellulitis 4. Biventricular pacemaker AICD , reached elective replacement interval on Recommendations: Continue IV diuretics. Patient with favorable urinary output, improved energy , improved mental status Continue antibiotics for cellulitis. Continue Xarelto for stroke prophylaxis Agree with transfer to telemetry. Patient was no familiar with the term "ejection fraction" and is unaware of his typical baseline. It is unclear if he has had a clinical set back because on non adherence , or if this is related to his device at NADIR and less frequent benefit from biventricular pacing. I called [facility], and determined his primary host is Dr. Rowan Chavarria MD main number [phone]. I left a message fro Dr Chavarria or associate to call me back to discuss patient's history and will start coordinating follow up. Will determine if it is best to optimize pt and perform generator change here or optimize and arrange close follow up in [place] for generator change there. Need to resolve concerns of infection / cellulitis before generator change performed. Laboratory Results Last 24 Hours Test 08/20/17 14:51 08/20/17 18:01 08/20/17 21:12 08/20/17 22:05 Digoxin Level 0.6 ng/ml Bedside Glucose 205 mg/dl 210 mg/dl 219 mg/dl Test 08/21/17 00:13 08/21/17 01:17 08/21/17 03:07 08/21/17 04:06 Bedside Glucose 186 mg/dl 139 mg/dl 117 mg/dl 140 mg/dl Test 08/21/17 04:21 08/21/17 05:21 08/21/17 06:14 08/21/17 07:30 White Blood Count 12.77 K/uL Red Blood Count 4.20 M/uL Hemoglobin 12.5 g/dL Hematocrit 38.8 % Mean Corpuscular Volume 92.4 fL Mean Corpuscular Hemoglobin 29.8 pg Mean Corpuscular Hemoglobin Concent 32.2 g/dl Platelet Count 262 K/uL Mean Platelet Volume 9.3 fL Neutrophils (%) (Auto) 88.2 % Lymphocytes (%) (Auto) 6.5 % Monocytes (%) (Auto) 4.9 % Eosinophils (%) (Auto) 0.0 % Basophils (%) (Auto) 0.1 % Neutrophils # (Auto) 11.27 K/uL Lymphocytes # (Auto) 0.83 K/uL Monocytes # (Auto) 0.62 K/uL Eosinophils # (Auto) 0.00 K/uL Basophils # (Auto) 0.01 K/uL RDW Standard Deviation 45.3 fL RDW Coefficient of Variation 13.5 % Immature Granulocyte % (Auto) 0.3 % Immature Granulocyte # (Auto) 0.04 K/uL Sodium Level 138 mmol/L Potassium Level 3.6 mmol/L Chloride Level 101 mmol/L Carbon Dioxide Level 34 mmol/L Anion Gap 3.0 mmol/L Blood Urea Nitrogen 18 mg/dl Creatinine 1.09 mg/dl Est Creatinine Clear Calc Drug Dose 66.8 ml/min Estimated GFR () 70.9 Estimated GFR (Non- 61.1 BUN/Creatinine Ratio 16.5 Random Glucose 113 mg/dl Estimated Average Glucose 128 mg/dl Hemoglobin A1c 6.1 % Calcium Level 9.4 mg/dl Phosphorus Level 2.1 mg/dl Magnesium Level 2.0 mg/dl Total Bilirubin 0.9 mg/dl Aspartate Amino Transf (AST/SGOT) 13 U/L Alanine Aminotransferase (ALT/SGPT) 13 U/L Alkaline Phosphatase 63 U/L Total Protein 7.3 gm/dl Albumin 3.0 gm/dl Globulin 4.3 gm/dl Albumin/Globulin Ratio 0.7 Procalcitonin 0.35 ng/ml Bedside Glucose 136 mg/dl 110 mg/dl 110 mg/dl Test 08/21/17 08:38 08/21/17 09:51 08/21/17 11:23 08/21/17 11:43 Bedside Glucose 134 mg/dl 128 mg/dl 110 mg/dl 106 mg/dl
[2017-08-21] MEDS: VANCOMYCIN IV 1,250 MG in SODIUM CHLORIDE 0.9% 250ML 250 ML IV SCH ×2 (12:26→22:43)
--- NOTE | 2017-08-21 20:05 | Progress Note ---
Internal Med Progress Note Date of Service: August 21, 2017. Provider Documentation: SUBJECTIVE: Patient is much more active and alert today. Very talkative. Denies acute pain or shortness of breath OBJECTIVE: General Appearance: no distress Head: normocephalic, atraumatic Eyes: normal inspection, EOMI ENT: normal ENT inspection, hearing grossly normal, pharynx normal Neck: supple, no JVD, trachea midline Respiratory/Chest: chest non-tender, better air entry, no wheezing Cardiovascular: no JVD, abnormal rhythm, pacemaker Abdomen/GI: normal bowel sounds, non tender, soft Extremities/Musculoskelatal: bilateral lower extremity edema with dark skin discoloration ASSESSMENT & PLAN: Sepsis on admission with Acute hypoxic respiratory failure with metabolic encephalopathy which required monitoring in the ICU on admission day Metabolic encephalopathy resolved Sepsis resolved Cellulitis of Lower extremities -Patient reports that lower extremity skin changes have been chronic -Patient's daughter Fannie Arnold [phone] by phone does report that symptoms are recently more "weepy" -patient had blood cultures ordered in the ED and started on Vancomycin and Zosyn on admission -1 of 2 admission blood cultures with gram positive cocci, Continue Vancomycin, follow up speciation and other cultures Respiratory -Patient denies history of COPD. Reports Smoking which he quit in 1950s. Denies inhalers -Reports chronic oxygen only at night, generally denies oxygen use during the day -ICU recommends outpatient sleep study for sleep apnea -Acute hypoxic respiratory failure has resolved Cardiac -Acute decompensation, chronic systolic heart failure (Echocardiogram reveals severe global hypokinesis, LVEF 20-25%) Continue IV diuretics and Beta blockers -Persistent Atrial Fibrillation Continue Xarelto for stroke prophylaxis -Biventricular pacemaker AICD , reached elective replacement interval on 07/27/17 Patient has pacemaker interrogated by [facility] front office representative in the and as per documentation results sent to [facility] on [address] , [place] [address] Inpatient Cardiology have called [facility] in [place], , and determined his primary business continuity specialist is Dr. Rowan Chavarria MD main number [phone]. Fluids/Renal: -Fluid restriction of 1500 mLs -continue IV Lasix Endocrine: -inpatient glycemic control protocol requested when patient was in ICU for hyperglycemia -but HbA1c is 6.1 -monitor glucose, insulin as needed DVT ppx: Xarelto Code Status: DNR/DNI as per discussion between ICU physicians and patient, also as per my discussion with the patient today pacemaker interrogated by [facility] front office representative in the and as per documentation results sent to [email or web address] on [address], [place] [address] Dr. Gabriel Archibald is the cardiology doctor listed as part of the pacemaker interrogation follow ups Inpatient Cardiology have called [facility] in [place] , and determined his primary business continuity specialist is Dr. Rowan Chavarria MD main number [phone]. Patient's primary care doctor is a Dr. Ronald [facility] on [address], [place] [address] [phone] Patient's pharmacy is [facility] [address], [place] [address] Patient's Daughter Fannie Arnold [phone] Vital Signs: Date Time Temp Pulse Resp B/P (MAP) Pulse Ox O2 Delivery O2 Flow Rate FiO2 08/21/17 20:08 36.4 78 18 99/60 (73) 91 Room Air 08/21/17 15:12 36.3 78 20 101/64 (76) 94 08/21/17 12:00 Room Air 08/21/17 11:46 36.6 84 18 92 08/21/17 11:44 36.6 84 18 115/75 (88) 92 08/21/17 10:00 79 24 92/60 (71) 94 Room Air 08/21/17 09:00 80 23 113/66 (82) 97 2.0 08/21/17 08:00 98 Nasal Cannula 2.0 Humidified Oxygen 08/21/17 08:00 Nasal Cannula 08/21/17 08:00 36.0 80 18 101/68 (79) 97 Nasal Cannula 2.0 Humidified Oxygen 08/21/17 07:53 80 08/21/17 06:01 79 18 126/69 (88) 94 Nasal Cannula 2.0 Humidified Oxygen 08/21/17 05:01 80 22 115/75 (88) 97 Nasal Cannula 2.0 Humidified Oxygen 08/21/17 04:01 36.5 79 22 109/63 (78) 96 Nasal Cannula 2.0 Humidified Oxygen 08/21/17 04:00 97 Nasal Cannula 2.0 Humidified Oxygen 08/21/17 03:01 80 19 113/67 (82) 95 Nasal Cannula 2.0 Humidified Oxygen 08/21/17 02:01 80 20 104/66 (79) 94 Nasal Cannula 2.0 Humidified Oxygen 08/21/17 01:01 80 20 109/62 (78) 98 Nasal Cannula 2.0 Humidified Oxygen 08/21/17 00:01 98 Nasal Cannula 2.0 Humidified Oxygen 08/21/17 00:01 36.6 80 22 122/79 (93) 98 Nasal Cannula 2.0 Humidified Oxygen 08/20/17 23:01 80 20 113/67 (82) 93 Nasal Cannula 2.0 Humidified Oxygen 08/20/17 22:01 81 23 104/60 (75) 96 Nasal Cannula 2.0 Humidified Oxygen 08/20/17 21:01 81 25 102/58 (73) 96 Nasal Cannula 2.0 Humidified Oxygen Lab Results: Results Past 24 Hours Test 08/20/17 21:12 08/20/17 22:05 08/21/17 00:13 08/21/17 01:17 Range/Units Bedside Glucose 210 219 186 139 70-99 mg/dl Test 08/21/17 03:07 08/21/17 04:06 08/21/17 04:21 08/21/17 05:21 Range/Units Bedside Glucose 117 140 136 70-99 mg/dl White Blood Count 12.77 4.8-10.8 K/uL Red Blood Count 4.20 4.7-6.1 M/uL Hemoglobin 12.5 14.0-18.0 g/dL Hematocrit 38.8 42-52 % Mean Corpuscular Volume 92.4 80-100 fL Mean Corpuscular Hemoglobin 29.8 25-34 pg Mean Corpuscular Hemoglobin Concent 32.2 32-36 g/dl Platelet Count 262 130-400 K/uL Mean Platelet Volume 9.3 7.4-10.4 fL Neutrophils (%) (Auto) 88.2 % Lymphocytes (%) (Auto) 6.5 % Monocytes (%) (Auto) 4.9 % Eosinophils (%) (Auto) 0.0 % Basophils (%) (Auto) 0.1 % Neutrophils # (Auto) 11.27 1.4-6.5 K/uL Lymphocytes # (Auto) 0.83 1.2-3.4 K/uL Monocytes # (Auto) 0.62 0.11-0.59 K/uL Eosinophils # (Auto) 0.00 0-0.5 K/uL Basophils # (Auto) 0.01 0-0.2 K/uL RDW Standard Deviation 45.3 36.4-46.3 fL RDW Coefficient of Variation 13.5 11.5-14.5 % Immature Granulocyte % (Auto) 0.3 % Immature Granulocyte # (Auto) 0.04 0.00-0.02 K/uL Sodium Level 138 136-145 mmol/L Potassium Level 3.6 3.5-5.1 mmol/L Chloride Level 101 98-107 mmol/L Carbon Dioxide Level 34 21-32 mmol/L Anion Gap 3.0 3-11 mmol/L Blood Urea Nitrogen 18 7-18 mg/dl Creatinine 1.09 0.60-1.40 mg/dl Est Creatinine Clear Calc Drug Dose 66.8 ml/min Estimated GFR () 70.9 Estimated GFR (Non- 61.1 BUN/Creatinine Ratio 16.5 10-20 Random Glucose 113 70-99 mg/dl Estimated Average Glucose 128 mg/dl Hemoglobin A1c 6.1 4.5-5.6 % Calcium Level 9.4 8.5-10.1 mg/dl Phosphorus Level 2.1 2.5-4.9 mg/dl Magnesium Level 2.0 1.8-2.4 mg/dl Total Bilirubin 0.9 0.2-1 mg/dl Aspartate Amino Transf (AST/SGOT) 13 15-37 U/L Alanine Aminotransferase (ALT/SGPT) 13 12-78 U/L Alkaline Phosphatase 63 45-117 U/L Total Protein 7.3 6.4-8.2 gm/dl Albumin 3.0 3.4-5.0 gm/dl Globulin 4.3 2.5-4.0 gm/dl Albumin/Globulin Ratio 0.7 0.9-2 Procalcitonin 0.35 0-0.5 ng/ml Test 08/21/17 06:14 08/21/17 07:30 08/21/17 08:38 08/21/17 09:51 Range/Units Bedside Glucose 110 110 134 128 70-99 mg/dl Test 08/21/17 11:23 08/21/17 11:43 08/21/17 16:21 Range/Units Bedside Glucose 110 106 128 70-99 mg/dl Microbiology Results 08/21/17 Blood Culture, Received Pending 08/21/17 Blood Culture, Received Pending 08/21/17 Gram Stain - Final, Resulted 08/21/17 Wound Culture, Resulted Pending 08/21/17 Gram Stain - Final, Resulted 08/21/17 Wound Culture, Resulted Pending
[2017-08-22] VITALS (8 sets, daily range): BP systolic 100–121; BP diastolic 59–76; PULSE 79–82; TEMP 36.3–37; O2SAT 91–95
[2017-08-22] MEDS: INSULIN ASPART 100 UNITS/ML 3 ML PEN SC SCH ×4 (07:49→21:00)
[2017-08-22] MEDS: PANTOprazole SOD 40 MG TAB PO SCH (07:50)
[2017-08-22] MEDS: POTASSIUM CHLORIDE 10 MEQ TABCR PO SCH ×2 (07:50→21:02)
[2017-08-22] MEDS: METOPROLOL TARTRATE 25 MG TAB PO SCH (07:50)
[2017-08-22] MEDS: DIGOXIN 0.125 MG TAB PO SCH (07:51)
[2017-08-22] MEDS: ESCITALOPRAM OXALATE 10 MG TAB PO SCH (07:51)
[2017-08-22] MEDS: TAMSULOSIN HCL 0.4 MG CAP PO SCH (07:52)
[2017-08-22] MEDS: MAGNESIUM OXIDE 400 MG TAB PO SCH ×2 (07:52→21:02)
[2017-08-22] MEDS: RIVAROXABAN 20 MG TAB PO SCH (07:53)
[2017-08-22] MEDS: FUROSEMIDE INJ 40 MG in SYRINGE 0 ML IV SCH ×2 (07:54→17:14)
--- NOTE | 2017-08-22 08:31 | Pharmacy Progress Note ---
Pharmacy Glycemic Sign Off Nt Date of Service August 22, 2017. Assessment & Plan ASSESSMENT: * Pharmacy was consulted by Dr Rivero on 08/21/17 for glycemic control and to write orders per [facility] inpatient glycemic control protocol. * Major changes made by pharmacy to antidiabetic regimen include: * Initiating IV insulin infusion for severe hyperglycemia while in ICU and then transitioning to SQ basal bolus insulin regimen when criteria met * No insulin needed now that patient status is improved. Pt with history of "pre-diabetes" only * Patient has been receiving/requiring 0 units of insulin per day for adequate glycemic control * BSGs ranging 97-134 mg/dl * Regimen has only required minor adjustments over the past 48hrs to achieve this level of control * Do not anticipate further changes in patient status that would quickly deteriorate glycemic control (i.e. patient to be NPO for upcoming procedure, steroids tapering, starting tube feedings, etc). PLAN FOR INPATIENT GLYCEMIC CONTROL: No changes needed to current regimen. * No basal insulin needed * Only required one dose of NPH yesterday to transition off of IV insulin infusion * AM fasting BSG within goal range without basal insulin * Continue NovoLog per scale ACHS/Q6hrs while NPO * Goal range = 110 140 mg/dl * CF = 25 mg/dl/unit * CR = 1 unit for ever -- g CHO consumed * Pharmacy is signing off of glycemic consult and will no longer be making adjustments to inpatient regimen. Please feel free to re-consult if needed. Thank you.
[2017-08-22] MEDS: VANCOMYCIN IV 1,250 MG in SODIUM CHLORIDE 0.9% 250ML 250 ML IV SCH ×2 (11:40→23:22)
--- NOTE | 2017-08-22 12:04 | Progress Note ---
Internal Med Progress Note Date of Service: August 22, 2017. Provider Documentation: SUBJECTIVE: Seen and examined at bedside Denies chest pain, SOB, dizziness, nausea, abd pain LE edema and erythema improving No other complaints OBJECTIVE: Vital Signs-as noted below Physical Exam: General Appearance:Moderately built and nourished, no apparent distress Head: normocephalic, Atraumatic Eyes: normal inspection, EOMI, PERRL Neck: supple, Trachea midline Respiratory/Chest: Decreased breath sounds, CTA Cardiovascular: S1, S2, No murmur Abdomen/GI:Soft, Non tender, Bowel sounds present Extremities/Musculoskelatal:normal inspection, 1-2+ B/l LE edema, mild erythema Neurologic/Psych:AAOX3, grossly no focal neurological deficits Skin: normal color, warm Lab data as noted below. ASSESSMENT & PLAN: Patient is an 87 yr male who was admitted for Sepsis secondary to cellulitis, Acute hypoxic respiratory failure, CHF exacerbation and metabolic encephalopathy. Metabolic encephalopathy: resolved mental status back to baseline Sepsis LE cellulitis Leukocytosis trending towards normal Procalcitonin normal Wound Cultures: pending Blood cultures: 04/04:coag negative staph Repeat Blood cultures:pending continue Vancomycin for now Zosyn discontinued Acute on chronic Hypoxic respiratory failure H/O COPD, chronic Oxygen dependency:2L at bedtime ? NANCY Needs sleep study as outpatient Acute on chronic Systolic CHF: S/P AICD: reached elective replacement interval on 07/27/17 ECHO: EF:20-25% as below continue IV diuretics Appreciate Cardiology Input Continue metoprolol,Digoxin Monitor I/Os, daily weight, fluid restriction Cardiology plans to discuss with primary mechanical integrity specialist in [place] to optimize and coordinate care Persistent Atrial fibrillation: Continue digoxin, metoprolol on Xarelto for anticoagulation Prediabetes: A1C:6.1 Continue ISS, monitor BGs DVT Px: On Xarelto Code Status: DNR/DNI Disposition: To be determined PROCEDURES: ECHO: * There is mild concentric left ventricular hypertrophy. * The left ventricle is moderately dilated. * There is severe global hypokinesis of the left ventricle. * Left ventricular systolic function is severely reduced. * The Left ventricular Ejection Fraction = 20-25%. * The aortic valve is calcified to a mild to moderate degree. * Mild valvular aortic stenosis is present. * There is mild mitral regurgitation. * There is mild tricuspid regurgitation. * Mild pulmonary artery hypertension is present. * The calculated pulmonary artery systolic pressure is 40 mmHg. Vital Signs: Date Time Temp Pulse Resp B/P (MAP) Pulse Ox O2 Delivery O2 Flow Rate FiO2 08/22/17 11:25 36.4 81 18 101/62 (75) 92 Room Air 08/22/17 08:00 Room Air 08/22/17 07:51 82 08/22/17 07:10 36.3 81 20 111/72 (85) 94 Nasal Cannula 2.0 08/22/17 04:19 36.5 79 17 100/59 (73) 95 Nasal Cannula 2.0 08/22/17 04:00 Nasal Cannula 2.0 08/22/17 00:06 Nasal Cannula 2.0 08/21/17 23:10 36.3 80 19 123/74 (90) 91 Room Air 08/21/17 20:09 94 Room Air 08/21/17 20:08 36.4 78 18 99/60 (73) 91 Room Air 08/21/17 16:22 94 Room Air 08/21/17 15:12 36.3 78 20 101/64 (76) 94 08/21/17 12:00 Room Air 08/21/17 11:46 36.6 84 18 92 08/21/17 11:44 36.6 84 18 115/75 (88) 92 Lab Results: Results Past 24 Hours Test 08/21/17 11:43 08/21/17 16:21 08/21/17 20:26 08/22/17 07:28 Range/Units Bedside Glucose 106 128 119 97 70-99 mg/dl Microbiology Results 08/21/17 Gram Stain - Final, Resulted 08/21/17 Wound Culture - Preliminary, Resulted Coag Neg Staphylococcus 08/21/17 Gram Stain - Final, Resulted 08/21/17 Wound Culture - Preliminary, Resulted Coag Neg Staphylococcus
[2017-08-22] MEDS ORDERED: NURSING VERBAL MED ORDER ONE (15:30)
--- NOTE | 2017-08-22 16:24 | Cardiology Follow-Up ---
Subjective General Date of Service: August 22, 2017. Chief Complaint: follow up lethargy, fever, edema, shortness of breath Pt evaluation today including: conversation w/ patient, physical exam History of Present Illness The patient is a 87 year old male seen in follow up. Patient feels well , watching television , and sitting in chair. Telemetry reveals AF, 80 bpm. Allergies Coded Allergies: No Known Allergies (Unverified , 08/20/17) Social History Smoking Status: Former Smoker Hx Alcohol Use - Type And Amou: No Hx Substance Use - Type And Am: No Problem List Medical Problems: (1) Cellulitis Status: Acute (2) CHF (congestive heart failure) Status: Acute (3) Sepsis Status: Acute Physical Exam Vital Signs Last Vital Signs Documentation Date Time Temp Pulse Resp B/P (MAP) Pulse Ox O2 Delivery O2 Flow Rate FiO2 08/22/17 15:43 91 Room Air 08/22/17 15:22 36.5 82 20 117/66 (83) 08/22/17 07:10 2.0 Physical Exam Constitutional: Level of Distress: NAD, chronically ill Neck: supple Lungs: Auscultation: no wheezing, no rales/crackles, pertinent finding (mildly decreased breath sounds at the bases bilaterally) Cardiovascular: Heart Auscultation: RRR, pertinent finding (1/6 SM. ) Abdomen: Inspection & Palpation: soft Extremities: pertinent finding (1-2+ edema, LLE edema from knee to ankle improving compared to 08/20 exam) Neurologic: Gait & Station: pertinent finding (no focal deficits. More alert.) Assessment and Plan Assessment and Plan Impression: 87 year old male 1. Acute decompensation, chronic systolic heart failure -Echocardiogram reveals severe global hypokinesis, LVEF 20-25% 2. Persistent AF 3. left lower extremity cellulitis 4. Biventricular pacemaker AICD , reached elective replacement interval on Recommendations: 1/2 blood cultures with coag negative staph, repeat cultures negative thus far. Continue vancomycin. Pt states LLE always more swollen than right , states he is getting close to baseline level of edema, much better compared to prior 2 weeks. Continue IV furosemide. Update chem panel in am. Continue Xarelto for stroke prophylaxis. I called [facility], and determined his primary hydro electric station operator is Dr. Rowan Chavarria MD main number [phone]. I left message on 08/21/[address] Chavarria's office but did not hear back yet, and am unable to reach again today. Patient's son will come to pickle cutter patient, needs 24 hours advance notice. Goal is to arrange close cardiology follow up in [place] next week and follow up device care AICD generator change there once antibiotic course completed. Laboratory Results Last 24 Hours Test 08/21/17 16:21 08/21/17 20:26 08/22/17 07:28 08/22/17 11:37 Bedside Glucose 128 mg/dl 119 mg/dl 97 mg/dl 111 mg/dl
[2017-08-22] MEDS: METOPROLOL SUCC 25MG EXT REL TAB PO SCH (21:01)
[2017-08-22] MEDS ORDERED: VANCOMYCIN TROUGH ONE (22:30)
[2017-08-23] VITALS (10 sets, daily range): BP systolic 105–118; BP diastolic 70–78; PULSE 69–80; TEMP 36.3–36.8; O2SAT 94–96
[2017-08-23] MEDS: INSULIN ASPART 100 UNITS/ML 3 ML PEN SC SCH ×4 (06:30→20:49)
[2017-08-23 06:50] LABS: BASO % 0.5 %; BASO ABS # 0.04 K/uL (0-0.2); EOS % 1.9 %; EOS ABS # 0.14 K/uL (0-0.5); HEMATOCRIT 35.9 % (42-52); HEMOGLOBIN 11.6 g/dL (14.0-18.0); IG# 0.02 K/uL (0.00-0.02); LYMPH % 24.9 %; LYMPH ABS # 1.86 K/uL (1.2-3.4); MEAN CORPUSCULAR HEMOGLOBIN 30.4 pg (25-34); MEAN CORPUSCULAR HGB CONC 32.3 g/dl (32-36); MEAN PLATELET VOLUME 9.5 fL (7.4-10.4); MONO % 9.5 %; MONO ABS # 0.71 K/uL (0.11-0.59); NEUT % 62.9 %; PLATELET COUNT 276 K/uL (130-400); RED CELL DISTRIBUTION WIDTH CV 13.6 % (11.5-14.5); RED CELL DISTRIBUTION WIDTH SD 46.7 fL (36.4-46.3); WHITE BLOOD COUNT 7.47 K/uL (4.8-10.8)
[2017-08-23 07:20] LABS: CALCIUM 9.3 mg/dl (8.5-10.1); CREATININE 0.83 mg/dl (0.60-1.40)
[2017-08-23] MEDS: FUROSEMIDE INJ 40 MG in SYRINGE 0 ML IV SCH (07:55)
[2017-08-23] MEDS: ESCITALOPRAM OXALATE 10 MG TAB PO SCH (07:56)
[2017-08-23] MEDS: PANTOprazole SOD 40 MG TAB PO SCH (07:56)
[2017-08-23] MEDS: DIGOXIN 0.125 MG TAB PO SCH (07:56)
[2017-08-23] MEDS: RIVAROXABAN 20 MG TAB PO SCH (07:56)
[2017-08-23] MEDS: MAGNESIUM OXIDE 400 MG TAB PO SCH ×2 (07:56→16:55)
[2017-08-23] MEDS: TAMSULOSIN HCL 0.4 MG CAP PO SCH (07:56)
[2017-08-23] MEDS: METOPROLOL SUCC 25MG EXT REL TAB PO SCH ×2 (07:57→20:48)
[2017-08-23] MEDS: POTASSIUM CHLORIDE 10 MEQ TABCR PO SCH ×2 (07:57→20:48)
[2017-08-23] MEDS ORDERED: LISINOPRIL 2.5 MG TAB PO ONE (11:00)
--- NOTE | 2017-08-23 11:03 | Cardiology Follow-Up ---
Subjective General Date of Service: August 23, 2017. Chief Complaint: follow up lethargy, fever, edema, shortness of breath Pt evaluation today including: conversation w/ patient, physical exam History of Present Illness The patient is a 87 year old male seen in follow up. Patient continues to feel well. Energy much improved compared to admission. Telemetry reveals ongoing rate controlled atrial fibrillation in the 80 bpm range. The QRS complexes alternate between ventricular paced complexes and wide QRS ely sh[place] beats consistent with left bundle branch block. This makes sense since he does have a history of biventricular pacemaker. His heart rates remain elevated to a degree that it explains why he is not having frequent therapeutic biventricular pacing. Allergies Coded Allergies: No Known Allergies (Unverified , 08/20/17) Social History Smoking Status: Former Smoker Hx Alcohol Use - Type And Amou: No Hx Substance Use - Type And Am: No Problem List Medical Problems: (1) Cellulitis Status: Acute (2) CHF (congestive heart failure) Status: Acute (3) Sepsis Status: Acute Physical Exam Vital Signs Last Vital Signs Documentation Date Time Temp Pulse Resp B/P (MAP) Pulse Ox O2 Delivery O2 Flow Rate FiO2 08/23/17 07:56 83 08/23/17 07:12 36.3 20 114/72 (86) 95 Nasal Cannula 2.0 Physical Exam Constitutional: Level of Distress: NAD, chronically ill Neck: supple Lungs: Auscultation: no wheezing, no rales/crackles, pertinent finding (mildly decreased breath sounds at the bases bilaterally) Cardiovascular: Heart Auscultation: RRR, pertinent finding (1/6 SM. ) Abdomen: Inspection & Palpation: soft Extremities: pertinent finding (1-2+ edema, LLE edema from knee to ankle improving compared to 08/20 exam) Neurologic: Gait & Station: pertinent finding (no focal deficits. More alert.) Assessment and Plan Assessment and Plan Impression: 87 year old male 1. Acute decompensation, chronic systolic heart failure -Echocardiogram reveals severe global hypokinesis, LVEF 20-25% 2. Persistent AF 3. left lower extremity cellulitis 4. Biventricular pacemaker AICD , reached elective replacement interval on Recommendations: 1/2 blood cultures with coag negative staph, repeat cultures negative thus far. Agree with having discontinued vancomycin and transitioning patient to cephalexin orally. Pt states LLE always more swollen than right , states he is getting close to baseline level of edema, much better compared to prior 2 weeks. At this time, discontinue IV furosemide. The patient tells me his home dose of furosemide is 80 mg by mouth 2 times per day. He has additional 40 mg tablets and sometimes he takes 120 mg 2 times per day. The patient's ejection fraction is severely diminished, I am not certain if this is an acute change for him or not as we have not been able to obtain records. I have tried to contact his primary soda room operator's office twice and of left messages. At this time, I have added metoprolol succinate and of increased the dose to 25 mg 2 times per day for rate control with thoughts that improved rate control may increase the frequency of him receiving beneficial biventricular pacing. I have added low-dose quinapril 2.5 mg daily. His kidney function potassium have been stable thus far. It is unclear why he was not on an evidence based beta-juan or LAURIE inhibitor based on his history. Perhaps he has had intolerance in the past but thus far he has been doing well. Continue home dose of digoxin as well as Xarelto for stroke prophylaxis. Patient will likely be ready for discharge tomorrow. His son is coming from [place] to pick him up and requires 1 day's notice. The only contact number we have for his family is for his daughter Nikole. I left a voicemail for her that we need to start organizing the patient's ride for tomorrow. We also need to have the family start calling for an appointment with the patient's primary soda room operator to be assessed in [place] within a week's time. It is my opinion that his primary soda room operator reassesses him and determines next step in terms of the timing for his generator change. He should can complete a course of antibiotics. But I think in terms of his cellulitis we are trending toward improvement. Initially his generator change was scheduled to be performed electively in [place] in September, I would recommend that this is perhaps performed sooner rather than later although I do not think it needs to be done at our institution at present, as he does have safety margins in place for his device and it is working adequately in terms of safety for now. I called [facility], and determined his primary soda room operator is Dr. Rowan Chavarria MD main number [phone]. I left message on 08/21/[address] Chavarria's office but did not hear back yet and had attempted again on 08/22/17 at 1630 and again on 08/23 at 1102 am. Goal is to arrange close cardiology follow up in [place] next week and follow up device care AICD generator change there once antibiotic course completed. Laboratory Results Last 24 Hours Test 08/22/17 11:37 08/22/17 16:33 08/22/17 20:28 08/22/17 22:08 Bedside Glucose 111 mg/dl 93 mg/dl 93 mg/dl Vancomycin Level Trough 15.1 mcg/ml Test 08/23/17 06:13 08/23/17 07:35 White Blood Count 7.47 K/uL Red Blood Count 3.82 M/uL Hemoglobin 11.6 g/dL Hematocrit 35.9 % Mean Corpuscular Volume 94.0 fL Mean Corpuscular Hemoglobin 30.4 pg Mean Corpuscular Hemoglobin Concent 32.3 g/dl Platelet Count 276 K/uL Mean Platelet Volume 9.5 fL Neutrophils (%) (Auto) 62.9 % Lymphocytes (%) (Auto) 24.9 % Monocytes (%) (Auto) 9.5 % Eosinophils (%) (Auto) 1.9 % Basophils (%) (Auto) 0.5 % Neutrophils # (Auto) 4.70 K/uL Lymphocytes # (Auto) 1.86 K/uL Monocytes # (Auto) 0.71 K/uL Eosinophils # (Auto) 0.14 K/uL Basophils # (Auto) 0.04 K/uL RDW Standard Deviation 46.7 fL RDW Coefficient of Variation 13.6 % Immature Granulocyte % (Auto) 0.3 % Immature Granulocyte # (Auto) 0.02 K/uL Sodium Level 138 mmol/L Potassium Level 4.0 mmol/L Chloride Level 101 mmol/L Carbon Dioxide Level 33 mmol/L Anion Gap 4.0 mmol/L Blood Urea Nitrogen 19 mg/dl Creatinine 0.83 mg/dl Est Creatinine Clear Calc Drug Dose 85.5 ml/min Estimated GFR () 92.3 Estimated GFR (Non- 79.7 BUN/Creatinine Ratio 23.2 Random Glucose 94 mg/dl Calcium Level 9.3 mg/dl Magnesium Level 2.3 mg/dl Bedside Glucose 93 mg/dl
--- NOTE | 2017-08-23 11:39 | Progress Note ---
Internal Med Progress Note Date of Service: August 23, 2017. Provider Documentation: SUBJECTIVE: Seen and examined at bedside Doing well No new complaints Denies chest pain, SOB, dizziness, nausea, abd pain LE edema and erythema improved, will switch to PO antibiotics No other complaints OBJECTIVE: Vital Signs-as noted below Physical Exam: General Appearance:Moderately built and nourished, no apparent distress Head: normocephalic, Atraumatic Eyes: normal inspection, EOMI, PERRL Neck: supple, Trachea midline Respiratory/Chest: Decreased breath sounds, CTA Cardiovascular: S1, S2, No murmur Abdomen/GI:Soft, Non tender, Bowel sounds present Extremities/Musculoskelatal:normal inspection, 1-2+ B/l LE edema, mild erythema Neurologic/Psych:AAOX3, grossly no focal neurological deficits Skin: normal color, warm Lab data as noted below. ASSESSMENT & PLAN: Patient is an 87 yr male who was admitted for Sepsis secondary to cellulitis, Acute hypoxic respiratory failure, CHF exacerbation and metabolic encephalopathy. Metabolic encephalopathy: resolved mental status back to baseline Sepsis LE cellulitis Leukocytosis trending towards normal Procalcitonin normal Wound Cultures: Coag negative staph Blood cultures: 04/04:coag negative staph Repeat Blood cultures:negative to date Vancomycin, Zosyn discontinued Continue Doxycycline and Keflex Acute on chronic Hypoxic respiratory failure H/O COPD, chronic Oxygen dependency:2L at bedtime ? NANCY Needs sleep study as outpatient Acute on chronic Systolic CHF: S/P AICD: reached elective replacement interval on 07/27/17 ECHO: EF:20-25% as below continue IV diuretics>>> transitioned to PO lasix Appreciate Cardiology Input Continue metoprolol,Digoxin, lisinopril added, metoprolol dose increased to 25mg BID Monitor I/Os, daily weight, fluid restriction Cardiology planed to discuss with primary train operations supervisor in [place] to optimize and coordinate care Could not reach Primary Medical Insurance Verifier, discussed with daughter about the same, Needs AICD generator change upon discharge at earliest possible date Persistent Atrial fibrillation: Continue digoxin, metoprolol on Xarelto for anticoagulation Prediabetes: A1C:6.1 Continue ISS, monitor BGs DVT Px: On Xarelto Code Status: DNR/DNI Disposition: Plan to discharged tomorrow if stable PROCEDURES: ECHO: * There is mild concentric left ventricular hypertrophy. * The left ventricle is moderately dilated. * There is severe global hypokinesis of the left ventricle. * Left ventricular systolic function is severely reduced. * The Left ventricular Ejection Fraction = 20-25%. * The aortic valve is calcified to a mild to moderate degree. * Mild valvular aortic stenosis is present. * There is mild mitral regurgitation. * There is mild tricuspid regurgitation. * Mild pulmonary artery hypertension is present. * The calculated pulmonary artery systolic pressure is 40 mmHg. Vital Signs: Date Time Temp Pulse Resp B/P (MAP) Pulse Ox O2 Delivery O2 Flow Rate FiO2 08/23/17 11:12 36.8 80 18 105/70 (82) 96 Nasal Cannula 2.0 08/23/17 08:01 94 Room Air 08/23/17 07:56 83 08/23/17 07:12 36.3 80 20 114/72 (86) 95 Nasal Cannula 2.0 08/23/17 07:00 36.6 76 19 109/71 (84) 95 Nasal Cannula 2.0 08/23/17 04:02 36.5 80 19 118/78 (91) 95 Nasal Cannula 2.0 08/23/17 04:00 Nasal Cannula 2.0 08/23/17 00:00 Nasal Cannula 2.0 08/22/17 23:33 37.0 79 20 113/76 (88) 93 Nasal Cannula 2.0 08/22/17 20:08 36.7 81 20 121/76 (91) 91 Room Air 08/22/17 20:00 91 Room Air 08/22/17 15:43 91 Room Air 08/22/17 15:22 36.5 82 20 117/66 (83) 91 Room Air 08/22/17 12:00 Room Air Lab Results: Results Past 24 Hours Test 08/22/17 11:37 08/22/17 16:33 08/22/17 20:28 08/22/17 22:08 Range/Units Bedside Glucose 111 93 93 70-99 mg/dl Vancomycin Level Trough 15.1 SEE COMMENT mcg/ml Test 08/23/17 06:13 08/23/17 07:35 Range/Units White Blood Count 7.47 4.8-10.8 K/uL Red Blood Count 3.82 4.7-6.1 M/uL Hemoglobin 11.6 14.0-18.0 g/dL Hematocrit 35.9 42-52 % Mean Corpuscular Volume 94.0 80-100 fL Mean Corpuscular Hemoglobin 30.4 25-34 pg Mean Corpuscular Hemoglobin Concent 32.3 32-36 g/dl Platelet Count 276 130-400 K/uL Mean Platelet Volume 9.5 7.4-10.4 fL Neutrophils (%) (Auto) 62.9 % Lymphocytes (%) (Auto) 24.9 % Monocytes (%) (Auto) 9.5 % Eosinophils (%) (Auto) 1.9 % Basophils (%) (Auto) 0.5 % Neutrophils # (Auto) 4.70 1.4-6.5 K/uL Lymphocytes # (Auto) 1.86 1.2-3.4 K/uL Monocytes # (Auto) 0.71 0.11-0.59 K/uL Eosinophils # (Auto) 0.14 0-0.5 K/uL Basophils # (Auto) 0.04 0-0.2 K/uL RDW Standard Deviation 46.7 36.4-46.3 fL RDW Coefficient of Variation 13.6 11.5-14.5 % Immature Granulocyte % (Auto) 0.3 % Immature Granulocyte # (Auto) 0.02 0.00-0.02 K/uL Sodium Level 138 136-145 mmol/L Potassium Level 4.0 3.5-5.1 mmol/L Chloride Level 101 98-107 mmol/L Carbon Dioxide Level 33 21-32 mmol/L Anion Gap 4.0 3-11 mmol/L Blood Urea Nitrogen 19 7-18 mg/dl Creatinine 0.83 0.60-1.40 mg/dl Est Creatinine Clear Calc Drug Dose 85.5 ml/min Estimated GFR () 92.3 Estimated GFR (Non- 79.7 BUN/Creatinine Ratio 23.2 10-20 Random Glucose 94 70-99 mg/dl Calcium Level 9.3 8.5-10.1 mg/dl Magnesium Level 2.3 1.8-2.4 mg/dl Bedside Glucose 93 70-99 mg/dl
--- NOTE | 2017-08-23 11:40 | Cardiology Progress Note ---
Cardiology Progress Note Date of Service August 23, 2017. Cardiology Progress Note I was able to reach office Dr Chavarria, patient's primary earth auger operator at [facility]. phone of office [phone], note I had to have the ship self defense system mk1 operator at [place] dial this outside extension for me as the phone from the physician dictation area would not connect. Dr Chavarria follows patient as a heart failure specialty provider. I discussed patient's case with Dr Deon Calvo's nurse who was able to share with me the patient had most recently been seen in outpatient heart failure follow-up on 07/25/17. His most recent ejection fraction per the record was 20%, and so therefore his ejection fraction is measured during this admission is stable compared to his recent prior baseline. He was biventricular pacing approximately 80% of the time and his most recent outpatient device check. It would appear that his device reached the elective replacement interval shortly after his most recent outpatient visit and device check in [place] as he had been seen on 07/25/17, and his device reached NADIR on 07/27/17. Their office is going to help us arrange heart failure follow-up and device specialty clinic follow-up within about a week to reassess the patient's heart failure, ensure that his antibiotic course is completed and his cellulitis is resolved, and arrange generator change as indicated, if of course the patient elects to move forward with generator change. The office is to call me with the appointment data.
[2017-08-23] MEDS: DOXYCYCLINE HYCLATE 100 MG CAP PO SCH ×2 (12:39→20:49)
[2017-08-23] MEDS: CEPHALEXIN MONOHYDRATE 500 MG CAP PO SCH ×3 (12:40→20:48)
[2017-08-23] MEDS: FUROSEMIDE 80 MG TAB PO SCH (12:40)
--- NOTE | 2017-08-23 21:52 | Progress Note ---
Post ICU Progress Note Date & Time August 23, 2017 at 21:52 Vital Signs Vital Signs Past 12 Hours Date Time Temp Pulse Resp B/P (MAP) Pulse Ox O2 Delivery O2 Flow Rate FiO2 08/23/17 20:03 36.5 69 80 116/72 (87) 96 Nasal Cannula 2.0 08/23/17 16:00 96 Room Air 08/23/17 15:11 36.8 80 20 105/72 (83) 96 Nasal Cannula 2.0 08/23/17 12:02 94 Room Air 08/23/17 11:12 36.8 80 18 105/70 (82) 96 Nasal Cannula 2.0 Notes Mental Status: alert / awake, participated in evaluation Nausea / Vomiting: adequately controlled Pain: adequately controlled Airway Patency, RR, SpO2: stable & adequate (Patient is back on his chronic 2 L nasal cannula) BP & HR: stable & adequate Robinson Hardy is an 87-year-old male who presented to our emergency room on August 20 with complaints of worsening respiratory distress that had started several days prior. Patient is a chronic 2 L nasal cannula oxygen user but was now requiring additional oxygen. Patient has a history of A. fib, COPD, pacemaker. Pt was febrile, elevated BNP, with fluid overload appearance on CXR. He presented with venous stasis changes and possible lower extremity cellulitis. Pt was treated in the ED with empiric abx and IV Lasix. Pt was admitted to the ICU for close observation. Pt underwent ECHO cardiogram which demonstrated EF of 20-25%(stable), left ventricular systolic function severely reduced, severe global hypokinesis of the left ventricle, left ventricle moderately dilated with mild concentric hypertrophy. Mild pulmonary artery hypertension is noted. Diuresis was continued. Blood cultures were initially positive in 1 out of 2 samples with coag negative staph not Lugdenesis, repeat cultures the following day are negative to date. Pt remained hemodynamically stable and was downgraded from the ICU. Dr. Herzog is working closely with the pts home HF clinic, as pts pacemaker is known to need replacing. Pt states he wants this done at home where he normally gets care. Upon my examination, pt is alert, oriented and without complaint. He states he received great care while in the ICU. He is impressed with the amount of fluid he has already lost from his legs. Pt remains stable at this time. Consider outpatient follow up in 1 to 2 weeks with: Follow up with Home HF clinic has been arranged for 09/12. Please keep this appointment Repeat imaging needed: NA Follow up cultures: NA Reviewed progress notes, labs, and inpatient medication list Continue current management Additional recommendations: Per Hospitalist Team/Cardiology Patient remains hemodynamically stable thus critical care will sign off at this time. Thank you for including us in the care of this patient; please feel free to reconsult as needed. Consults & Procedures Consultants: Cardiology: Dr. Herzog Wound care
[2017-08-24] VITALS: O2SAT 96
[2017-08-24 00:13] VITALS: BP 113/68; PULSE 80; TEMP 36.4; O2SAT 80
[2017-08-24 04:00] VITALS: O2SAT 96
[2017-08-24 05:20] VITALS: BP 98/59; PULSE 81; TEMP 36.4; O2SAT 93
[2017-08-24 06:56] LABS: BASO % 0.8 %; BASO ABS # 0.05 K/uL (0-0.2); EOS % 3.8 %; EOS ABS # 0.23 K/uL (0-0.5); HEMATOCRIT 36.3 % (42-52); HEMOGLOBIN 11.6 g/dL (14.0-18.0); IG# 0.03 K/uL (0.00-0.02); LYMPH % 30.3 %; LYMPH ABS # 1.84 K/uL (1.2-3.4); MEAN CORPUSCULAR HEMOGLOBIN 30.1 pg (25-34); MEAN PLATELET VOLUME 9.2 fL (7.4-10.4); MONO % 9.7 %; MONO ABS # 0.59 K/uL (0.11-0.59); NEUT % 54.9 %; NEUT ABS # 3.33 K/uL (1.4-6.5); PLATELET COUNT 263 K/uL (130-400); RED CELL DISTRIBUTION WIDTH CV 13.5 % (11.5-14.5); RED CELL DISTRIBUTION WIDTH SD 46.3 fL (36.4-46.3); WHITE BLOOD COUNT 6.07 K/uL (4.8-10.8)
[2017-08-24 07:08] VITALS: BP 107/66; PULSE 80; TEMP 36.4; O2SAT 90
--- NOTE | 2017-08-24 07:12 | Cardiology Progress Note ---
Cardiology Progress Note Date of Service August 24, 2017. Cardiology Progress Note Follow up appointments obtained with primary cement storage worker. 08/29/[address] Rowan Chavarria ,[facility] [address] [facility] 3rd Floor Cardiology [facility] [id number] Electrophysiology Follow up, Dr Saavedra 09/13/17, 1 pm, same address. Patient's primary cement storage worker and EP provider are aware generator had reached NADIR and will follow up.
[2017-08-24 07:43] LABS: CALCIUM 9.5 mg/dl (8.5-10.1); CREATININE 0.84 mg/dl (0.60-1.40); POTASSIUM 4.1 mmol/L (3.5-5.1)
[2017-08-24] MEDS: MAGNESIUM OXIDE 400 MG TAB PO SCH (07:53)
[2017-08-24] MEDS: ESCITALOPRAM OXALATE 10 MG TAB PO SCH (07:54)
[2017-08-24] MEDS: TAMSULOSIN HCL 0.4 MG CAP PO SCH (07:54)
[2017-08-24] MEDS: CEPHALEXIN MONOHYDRATE 500 MG CAP PO SCH (07:54)
[2017-08-24] MEDS: POTASSIUM CHLORIDE 10 MEQ TABCR PO SCH (07:54)
[2017-08-24] MEDS: PANTOprazole SOD 40 MG TAB PO SCH (07:54)
[2017-08-24] MEDS: METOPROLOL SUCC 25MG EXT REL TAB PO SCH (07:54)
[2017-08-24] MEDS: FUROSEMIDE 80 MG TAB PO SCH (07:55)
[2017-08-24] MEDS: RIVAROXABAN 20 MG TAB PO SCH (07:55)
[2017-08-24] MEDS: INSULIN ASPART 100 UNITS/ML 3 ML PEN SC SCH (07:56)
[2017-08-24] MEDS: DIGOXIN 0.125 MG TAB PO SCH (07:56)
[2017-08-24] MEDS ORDERED: LISINOPRIL 2.5 MG TAB PO SCH (09:00)
--- NOTE | 2017-08-24 09:29 | Progress Note ---
Internal Med Progress Note Date of Service: August 24, 2017. Provider Documentation: SUBJECTIVE: Seen and examined at bedside Eager to get discharged No complaints Denies chest pain, SOB, dizziness, nausea, abd pain LE edema and erythema improved Discussed with Outsole Cementer OBJECTIVE: Vital Signs-as noted below Physical Exam: General Appearance:Moderately built and nourished, no apparent distress Head: normocephalic, Atraumatic Eyes: normal inspection, EOMI, PERRL Neck: supple, Trachea midline Respiratory/Chest: Decreased breath sounds, CTA Cardiovascular: S1, S2, No murmur Abdomen/GI:Soft, Non tender, Bowel sounds present Extremities/Musculoskelatal:normal inspection, 1-2+ B/l LE edema, mild erythema Neurologic/Psych:AAOX3, grossly no focal neurological deficits Skin: normal color, warm Lab data as noted below. ASSESSMENT & PLAN: Patient is an 87 yr male who was admitted for Sepsis secondary to cellulitis, Acute hypoxic respiratory failure, CHF exacerbation and metabolic encephalopathy. Metabolic encephalopathy: resolved mental status back to baseline Sepsis LE cellulitis Leukocytosis trending towards normal Procalcitonin normal Wound Cultures: Coag negative staph Blood cultures: 1/2:coag negative staph Repeat Blood cultures:negative to date Vancomycin, Zosyn discontinued Continue Doxycycline and Keflex Day # 2 Acute on chronic Hypoxic respiratory failure H/O COPD, chronic Oxygen dependency:2L at bedtime ? NANCY Needs sleep study as outpatient Acute on chronic Systolic CHF: S/P AICD: reached elective replacement interval on 07/27/17 ECHO: EF:20-25% as below continue IV diuretics>>> transitioned to PO lasix Appreciate Cardiology Input Continue metoprolol,Digoxin, lisinopril added, metoprolol dose increased to 25mg BID Monitor I/Os, daily weight, fluid restriction Cardiology discussed with patient's Primary Outsole Cementer Dr.Shuchita Chavarria to coordinate care and further management Patient's primary job tracer and EP provider are aware generator had reached NADIR and will follow up upon discharge Persistent Atrial fibrillation: Continue digoxin, metoprolol on Xarelto for anticoagulation Prediabetes: A1C:6.1 Continue ISS, monitor BGs DVT Px: On Xarelto Code Status: DNR/DNI Disposition: Plan to discharge home today Follow up with your Primary Care Physician in 1 week Follow up with your Outsole Cementer Dr Rowan Chavarria on 08/29/17 at 1pm [facility] [address] [place] 3rd Floor Cardiology [facility] [id number] Follow up with your Electrophysiology Follow up, Dr Saavedra on 09/13/17 at 1 pm Complete the antibiotic course as prescribed Seek immediate medical attention if your symptoms reoccur or worsen PROCEDURES: ECHO: * There is mild concentric left ventricular hypertrophy. * The left ventricle is moderately dilated. * There is severe global hypokinesis of the left ventricle. * Left ventricular systolic function is severely reduced. * The Left ventricular Ejection Fraction = 20-25%. * The aortic valve is calcified to a mild to moderate degree. * Mild valvular aortic stenosis is present. * There is mild mitral regurgitation. * There is mild tricuspid regurgitation. * Mild pulmonary artery hypertension is present. * The calculated pulmonary artery systolic pressure is 40 mmHg. Vital Signs: Date Time Temp Pulse Resp B/P (MAP) Pulse Ox O2 Delivery O2 Flow Rate FiO2 08/24/17 07:56 80 08/24/17 07:08 36.4 80 20 107/66 (80) 90 Room Air 08/24/17 05:20 36.4 81 18 98/59 (72) 93 Room Air 08/24/17 04:00 96 Nasal Cannula 2.0 08/24/17 00:13 36.4 80 19 113/68 (83) 80 Nasal Cannula 2.0 08/24/17 00:00 96 Nasal Cannula 2.0 08/23/17 20:03 36.5 69 80 116/72 (87) 96 Nasal Cannula 2.0 08/23/17 20:00 96 Room Air 2.0 08/23/17 16:00 96 Room Air 08/23/17 15:11 36.8 80 20 105/72 (83) 96 Nasal Cannula 2.0 08/23/17 12:02 94 Room Air 08/23/17 11:12 36.8 80 18 105/70 (82) 96 Nasal Cannula 2.0 Lab Results: Results Past 24 Hours Test 08/23/17 11:33 08/23/17 16:19 08/23/17 20:46 08/24/17 06:17 Range/Units Bedside Glucose 95 98 110 70-99 mg/dl White Blood Count 6.07 4.8-10.8 K/uL Red Blood Count 3.86 4.7-6.1 M/uL Hemoglobin 11.6 14.0-18.0 g/dL Hematocrit 36.3 42-52 % Mean Corpuscular Volume 94.0 80-100 fL Mean Corpuscular Hemoglobin 30.1 25-34 pg Mean Corpuscular Hemoglobin Concent 32.0 32-36 g/dl Platelet Count 263 130-400 K/uL Mean Platelet Volume 9.2 7.4-10.4 fL Neutrophils (%) (Auto) 54.9 % Lymphocytes (%) (Auto) 30.3 % Monocytes (%) (Auto) 9.7 % Eosinophils (%) (Auto) 3.8 % Basophils (%) (Auto) 0.8 % Neutrophils # (Auto) 3.33 1.4-6.5 K/uL Lymphocytes # (Auto) 1.84 1.2-3.4 K/uL Monocytes # (Auto) 0.59 0.11-0.59 K/uL Eosinophils # (Auto) 0.23 0-0.5 K/uL Basophils # (Auto) 0.05 0-0.2 K/uL RDW Standard Deviation 46.3 36.4-46.3 fL RDW Coefficient of Variation 13.5 11.5-14.5 % Immature Granulocyte % (Auto) 0.5 % Immature Granulocyte # (Auto) 0.03 0.00-0.02 K/uL Sodium Level 139 136-145 mmol/L Potassium Level 4.1 3.5-5.1 mmol/L Chloride Level 102 98-107 mmol/L Carbon Dioxide Level 33 21-32 mmol/L Anion Gap 4.0 3-11 mmol/L Blood Urea Nitrogen 18 7-18 mg/dl Creatinine 0.84 0.60-1.40 mg/dl Est Creatinine Clear Calc Drug Dose 84.1 ml/min Estimated GFR () 91.9 Estimated GFR (Non- 79.3 BUN/Creatinine Ratio 21.6 10-20 Random Glucose 101 70-99 mg/dl Calcium Level 9.5 8.5-10.1 mg/dl Magnesium Level 2.4 1.8-2.4 mg/dl Test 08/24/17 07:31 Range/Units Bedside Glucose 98 70-99 mg/dl
[2017-08-24] MEDS ORDERED: LSN25 PO (09:34)
[2017-08-24] MEDS ORDERED: TPRSR25 PO (09:34)
[2017-08-24] MEDS ORDERED: DXY100 PO (09:34)
[2017-08-24] MEDS ORDERED: POTA10CA28 PO (09:34)
[2017-08-24] MEDS ORDERED: KFL500 PO (09:34)
--- NOTE | 2017-08-24 09:37 | Discharge Instructions ---
Discharge Instructions Date of Service August 24, 2017. Admission Reason for Admission: Cellulitis,Chf,Fever,Pacemaker Discharge Discharge Diagnosis / Problem: Cellulitis, CHF, Encephalopathy, Pacemaker Problem Discharge Goals Goal(s): Decrease discomfort, Improve function Activity Recommendations Activity Limitations: resume your previous activity Exercise/Sports Limitations: as tolerated . Instructions / Follow-Up Instructions / Follow-Up Follow up with your Primary Care Physician in 1 week Follow up with your City Jailer Dr Rowan Chavarria on 08/29/17 at 1pm [facility] [address] [place] 3rd Floor Cardiology [facility] [address] Follow up with your Electrophysiology Follow up, Dr Saavedra on 09/13/17 at 1 pm Complete the antibiotic course as prescribed Get Sleep Study done as outpatient as advised Seek immediate medical attention if your symptoms reoccur or worsen Call your Primary Care doctor if any of the following symptoms or problems start or get worse: * Shortness of breath or difficulty breathing * Wake up at night short of breath * Chest pain * Cough * Swelling of your hands, feet, or legs * More fatigued or tired with your normal activity * Palpitations - sudden fast heart beats WEIGHT * Weigh yourself every morning after using the bathroom. * Use the same scale. * Wear the same amount of clothing. * Write your weight down on a chart. * Call your Primary Care doctor if you gain more than 2-3 pounds in 1-2 days. MEDICATIONS * Use this discharge instruction sheet for medication instructions. * Take your medications at the time your doctor ordered. * Do not skip a dose of your medicines. * If you miss a dose of medicine, take it as soon as possible, but DO NOT DOUBLE A DOSE. * Read your medicine information when you get home. * Know all of the side effects of your medicine. If in doubt, ask your pharmacist * Call your Primary Care doctor's office if you have any side effects. * Be sure all of your doctors know what medicine and herbs you take (including cold, flu, and herbal medicine). Take the following with you to your follow-up doctor appointments: * Weight Chart * Medication List * List of questions Do not drink excessive alcohol, beer or wine. Current Hospital Diet Patient's current hospital diet: AHA Diet (Heart Healthy) Discharge Diet Recommended Diet: AHA Diet (Heart Healthy) Pending Studies Studies pending at discharge: no Laboratory Results Hemoglobin A1c Test 08/21/17 04:21 Range/Units Estimated Average Glucose 128 mg/dl Hemoglobin A1c 6.1 H 4.5-5.6 % Medical Emergencies . Who to Call and When: Call 911 or go to the Emergency Room if: * If at any time you feel your situation is an emergency * You have tightness or pain in your chest that does not go away with rest or Nitroglycerin * You are very short of breath even with rest . Non-Emergent Contact Non-Emergency issues call your: Primary Care Provider, City Jailer Call Non-Emergent contact if: you have a fever, your pain is not controlled, your pain is worsening, your pain is unusual for you, your pain is concerning you, you have any medication questions Seek immediate medical attention if your symptoms reoccur or worsen . . "Provider Documentation" section prepared by Eriberto Vasquez. .
--- NOTE | 2017-08-24 09:40 | Discharge Summary ---
Discharge Summary Date of Service August 24, 2017. Discharge Summary Admission Date: August 20, 2017 at 14:10 Discharge Date: August 24, 2017 Discharge Disposition: Home Principal Diagnosis: Cellulitis, CHF, Encephalopathy, Pacemaker Problem Procedures: LE Doppler: No evidence of left lower extremity DVT. CXR: 1. Cardiomegaly and possible pulmonary arterial hypertension 2. Elevation of the interstitium. An element of mild pulmonary vascular congestion must be considered ECHO: Interpretation Summary * Name: MAURA OTT Study Date: 08/21/2017 06:43 AM BP: 126/69 mmHg * Patient Location: .MSICU\\S\\E106\\[id number]\\1 HR: 79 * : 1930 (M/d/yyyy) Gender: Male Height: 74 in * Age: 87 yrs Ethnicity: ME Weight: 263 lb * Ordering Physician: Marty Palumbo * Performed By: Lashanda Manrique RDCS * * Reason For Study: CHF * BSA: 2.4 m2 * -- Conclusions -- * There is mild concentric left ventricular hypertrophy. * The left ventricle is moderately dilated. * There is severe global hypokinesis of the left ventricle. * Left ventricular systolic function is severely reduced. * The Left ventricular Ejection Fraction = 20-25%. * The aortic valve is calcified to a mild to moderate degree. * Mild valvular aortic stenosis is present. * There is mild mitral regurgitation. * There is mild tricuspid regurgitation. * Mild pulmonary artery hypertension is present. * The calculated pulmonary artery systolic pressure is 40 mmHg. Consultations: School Crossing Guard Supervisor Pending Studies/Follow-Up: Follow up with your Primary Care Physician in 1 week Follow up with your School Crossing Guard Supervisor Dr Rowan Chavarria on 08/29/17 at 1pm [facility] [address] [facility] [address] [facility] Cardiology [facility] [id number] Follow up with your Electrophysiology Follow up, Dr Saavedra on 09/13/17 at 1 pm Complete the antibiotic course as prescribed Get Sleep Study done as outpatient as advised Seek immediate medical attention if your symptoms reoccur or worsen Medication Reconciliation New Medications: Cephalexin Monohydrate (Cephalexin) 500 Mg Cap 500 MG PO QID for 4 Days, #16 CAP Doxycycline Hyclate (Doxycycline Hyclate) 100 Mg Cap 100 MG PO BID@1000,2200 for 4 Days, #8 CAP Lisinopril (Lisinopril) 2.5 Mg Tab 2.5 MG PO QAM for 30 Days, #30 TAB Metoprolol Succinate (Metoprolol Succinate ER) 25 Mg Tabcr 25 MG PO BID for 30 Days, #60 EA Potassium Chloride (Micro-K Ext Rel) 10 Meq Capcr 10 MEQ PO BID for 30 Days, #60 EA Continued Medications: Digoxin (Digoxin) 0.125 Mg Tab 0.125 MG PO DAILY Dutasteride-Tamsulosin HCl (Dutasteride/Tamsulosin Hc 0.5-0.4 mg) 1 Cap Cap 1 CAP PO DAILY Escitalopram (Lexapro) 10 Mg Tab 10 MG PO DAILY, TAB Furosemide (Lasix) 80 Mg Tab 80 MG PO BID Furosemide (Lasix) 40 Mg Tab 40 MG PO UD PRN for FLUID RETENTION, TAB Omeprazole (Prilosec) 20 Mg Capcr Unknown Dose PO DAILY, CAP Rivaroxaban (Xarelto) 20 Mg Tab 20 MG PO DAILY, TAB Admission Information HPI (per Admitting provider): This is an 87 year old M on chronic home O2 originally from [place] who was in [place] while on camping trip patient became having more shortness of breath, reportedly had shortness of breath 2 days before going on his camping trip, and during the trip there was problems with the patient's oxygen supply was no longer working. Patient was found to have fever of 102 F and more hypoxic when brought to the ED.Found to have evidence of cellulitis infection of lower extremities. Patient had pacemaker interrogated. ED requested hospitalist admission for fever. Hospitalist examined the patient. Patient denies recent fevers. Denies worsening leg swelling. Patient is a poor historian. Patient's daughter was contacted and attempts made to contact his pharmacy and doctors. Cardiology asked to see the patient in regards to the pacemaker interrogation reports. ICU doctor asked evaluate due to increased oxygen requirements and waning mental status and in a patient with multiple cardiac, respiratory co-morbidities with fever. Physical Exam (per Admitting): General Appearance: + pertinent finding (increasingly drowsy) Head: normocephalic, atraumatic Eyes: normal inspection, EOMI ENT: normal ENT inspection, hearing grossly normal, pharynx normal Neck: supple, no JVD, trachea midline Respiratory/Chest: chest non-tender, + crackles Cardiovascular: no JVD, + abnormal rhythm, + pertinent finding (pacemaker) Abdomen/GI: normal bowel sounds, non tender, soft Back: normal inspection, no CVA tenderness, no muscle spasm Extremities/Musculoskelatal: + swelling (bilateral lower extremity edema with dark skin discoloration) Neurologic/Psych: + pertinent finding (increasingly drowsy) Skin: + pertinent finding (lower extremity with weepy swollen legs) Hospital Course Patient is an 87 yr male who was admitted for Sepsis secondary to cellulitis, Acute hypoxic respiratory failure, CHF exacerbation and metabolic encephalopathy. Metabolic encephalopathy: resolved mental status back to baseline Sepsis LE cellulitis Leukocytosis trending towards normal Procalcitonin normal Wound Cultures: Coag negative staph Blood cultures: 04/04:coag negative staph Repeat Blood cultures:negative to date Vancomycin, Zosyn discontinued Continue Doxycycline and Keflex Day # 2 Acute on chronic Hypoxic respiratory failure H/O COPD, chronic Oxygen dependency:2L at bedtime ? NANCY Needs sleep study as outpatient Acute on chronic Systolic CHF: S/P AICD: reached elective replacement interval on 07/27/17 ECHO: EF:20-25% as below continue IV diuretics>>> transitioned to PO lasix Appreciate Cardiology Input Continue metoprolol,Digoxin, lisinopril added, metoprolol dose increased to 25mg BID Monitor I/Os, daily weight, fluid restriction Cardiology discussed with patient's Primary School Crossing Guard Supervisor Dr.Shuchita Chavarria to coordinate care and further management Patient's primary a r collections rep and EP provider are aware generator had reached NADIR and will follow up upon discharge Persistent Atrial fibrillation: Continue digoxin, metoprolol on Xarelto for anticoagulation Prediabetes: A1C:6.1 Continue ISS, monitor BGs DVT Px: On Xarelto Code Status: DNR/DNI Disposition: Plan to discharge home today Follow up with your Primary Care Physician in 1 week Follow up with your School Crossing Guard Supervisor Dr Rowan Chavarria on 08/29/17 at 1pm [facility] [address] [place] 3rd Floor Cardiology [facility] [id number] Follow up with your Electrophysiology Follow up, Dr Saavedra on 09/13/17 at 1 pm Complete the antibiotic course as prescribed Seek immediate medical attention if your symptoms reoccur or worsen PROCEDURES: ECHO: * There is mild concentric left ventricular hypertrophy. * The left ventricle is moderately dilated. * There is severe global hypokinesis of the left ventricle. * Left ventricular systolic function is severely reduced. * The Left ventricular Ejection Fraction = 20-25%. * The aortic valve is calcified to a mild to moderate degree. * Mild valvular aortic stenosis is present. * There is mild mitral regurgitation. * There is mild tricuspid regurgitation. * Mild pulmonary artery hypertension is present. * The calculated pulmonary artery systolic pressure is 40 mmHg. Total time spent on discharge = 36 minutes This includes examination of the patient, discharge planning, medication reconciliation, and communication with other providers. Discharge Instructions Discharge Instructions Date of Service August 24, 2017. Admission Reason for Admission: Cellulitis,Chf,Fever,Pacemaker Discharge Discharge Diagnosis / Problem: Cellulitis, CHF, Encephalopathy, Pacemaker Problem Discharge Goals Goal(s): Decrease discomfort, Improve function Activity Recommendations Activity Limitations: resume your previous activity Exercise/Sports Limitations: as tolerated . Instructions / Follow-Up Instructions / Follow-Up Follow up with your Primary Care Physician in 1 week Follow up with your School Crossing Guard Supervisor Dr Rowan Chavarria on 08/29/17 at 1pm [facility] [address] [facility] [address] [facility] Cardiology [place] [address] Follow up with your Electrophysiology Follow up, Dr Saavedra on 09/13/17 at 1 pm Complete the antibiotic course as prescribed Get Sleep Study done as outpatient as advised Seek immediate medical attention if your symptoms reoccur or worsen Call your Primary Care doctor if any of the following symptoms or problems start or get worse: * Shortness of breath or difficulty breathing * Wake up at night short of breath * Chest pain * Cough * Swelling of your hands, feet, or legs * More fatigued or tired with your normal activity * Palpitations - sudden fast heart beats WEIGHT * Weigh yourself every morning after using the bathroom. * Use the same scale. * Wear the same amount of clothing. * Write your weight down on a chart. * Call your Primary Care doctor if you gain more than 2-3 pounds in 1-2 days. MEDICATIONS * Use this discharge instruction sheet for medication instructions. * Take your medications at the time your doctor ordered. * Do not skip a dose of your medicines. * If you miss a dose of medicine, take it as soon as possible, but DO NOT DOUBLE A DOSE. * Read your medicine information when you get home. * Know all of the side effects of your medicine. If in doubt, ask your pharmacist * Call your Primary Care doctor's office if you have any side effects. * Be sure all of your doctors know what medicine and herbs you take (including cold, flu, and herbal medicine). Take the following with you to your follow-up doctor appointments: * Weight Chart * Medication List * List of questions Do not drink excessive alcohol, beer or wine. Current Hospital Diet Patient's current hospital diet: AHA Diet (Heart Healthy) Discharge Diet Recommended Diet: AHA Diet (Heart Healthy) Pending Studies Studies pending at discharge: no Laboratory Results Hemoglobin A1c Test 08/21/17 04:21 Range/Units Estimated Average Glucose 128 mg/dl Hemoglobin A1c 6.1 H 4.5-5.6 % Medical Emergencies . Who to Call and When: Call 911 or go to the Emergency Room if: * If at any time you feel your situation is an emergency * You have tightness or pain in your chest that does not go away with rest or Nitroglycerin * You are very short of breath even with rest . Non-Emergent Contact Non-Emergency issues call your: Primary Care Provider, School Crossing Guard Supervisor Call Non-Emergent contact if: you have a fever, your pain is not controlled, your pain is worsening, your pain is unusual for you, your pain is concerning you, you have any medication questions Seek immediate medical attention if your symptoms reoccur or worsen . . "Provider Documentation" section prepared by Eriberto Vasquez. . <Electronically signed by Eriberto Vasquez MD> Signed: 08/24/17 0937 Signed: The status of this report is Signed * If report status is Draft, the document has not been finalized by the responsible provider.
[2017-08-24 09:45] VITALS: BP 107/66; PULSE 80; TEMP 36.4; O2SAT 90
[2017-08-24] MEDS: DOXYCYCLINE HYCLATE 100 MG CAP PO SCH (10:42)
== END 2017-08-24 11:33 | disposition home or self-care (01) | DRG 871 ==
LOC: EDBD 10:32 → C.EDB 10:36 → C.MSICU 14:10 → CANRESERV 14:19 → ENRESERV 14:19 → EDBEDREQSVC 15:26 → EDBEDREQTM 15:26 → ENRESERV 15:29 → C.MED 08-21 11:39
PROVIDERS: ADMIT Hospitalist; ATTEND Internal Medicine
DX: A41.9 Sepsis, unspecified organism (principal); I50.23 Acute on chronic systolic (congestive) heart failure; L03.115 Cellulitis of right lower limb; L03.116 Cellulitis of left lower limb; G93.41 Metabolic encephalopathy; I48.1 Persistent atrial fibrillation; J96.21 Acute and chronic respiratory failure with hypoxia; I42.9 Cardiomyopathy, unspecified; J44.9 Chronic obstructive pulmonary disease, unspecified; Z99.81 Dependence on supplemental oxygen; Z95.810 Presence of automatic (implantable) cardiac defibrillator; Z87.891 Personal history of nicotine dependence; R73.03 Prediabetes; B95.8 Unspecified staphylococcus as the cause of diseases classified elsewhere